=== PATIENT | male | born 1960 | race Caucasian/White ===

== ENCOUNTER 2018-01-14 15:53 | Inpatient (IN) | payer MEDICAID ==
--- NOTE | 2018-01-14 16:22 | ED PDOC ---
Arrival/HPI - General Chief Complaint: Shortness Of Breath Time Seen by Provider: 01/14/18 16:10 Historian: Patient - History of Present Illness Narrative History of Present Illness (Text): 01/14/18 16:17 57 year old male, with a past medical history that includes CAD, cardiomyopathy , hypertension, and MT, presents to the emergency department with chest pain and shortness of breath. Patient states he is coughing blood, and has pain in the "back" of his lungs. Patient is on Coumadin as per Dr. Rasmussen. Patient denies any fever, chills, headache, dizziness, nausea, vomiting, diarrhea, neck pain, urinary/bowel changes, or any other complaint. 01/14/18 19:29 Time/Duration: Prior to Arrival Symptom Onset: Gradual Symptom Course: Unchanged Quality: Pressure, Tightness Past Medical History - Provider Review Nursing Documentation Reviewed: Yes - Infectious Disease Hx of Infectious Diseases: None - Tetanus Immunization Tetanus Immunization: Unknown - Cardiac Hx Congestive Heart Failure: Yes Hx MT: Yes Hx Hypertension: Yes - Neurological Hx Neurological Disorder: Yes (MT) - Musculoskeletal/Rheumatological Hx Arthritis: Yes - Gastrointestinal Hx Gastroesophageal Reflux: Yes - Psychiatric Hx Depression: No Hx Emotional Abuse: No Hx Physical Abuse: No Hx Substance Use: No - Past Surgical History Past Surgical History: Unable to Obtain - Surgical History Hx Coronary Stent: Yes - Anesthesia Hx Anesthesia: Yes Hx Anesthesia Reactions: No - Suicidal Assessment Feels Threatened In Home Enviroment: No Family/Social History - Physician Review Nursing Documentation Reviewed: Yes Family/Social History: No Known Family HX Smoking Status: Heavy Smoker > 10 Cigarettes Daily Hx Alcohol Use: Yes Frequency of alcohol use: Socially Hx Substance Use: No Allergies/Home Meds Allergies/Adverse Reactions: Allergies No Known Allergies Allergy (Verified 01/14/18 16:09) Home Medications: Home Meds Medication Instructions Recorded Confirmed Aspirin [Aspir 81] 81 tab PO DAILY 04/04/13 06/19/15 Carvedilol [Coreg] 6.25 mg PO BID 04/04/13 06/19/15 Clopidogrel Hydrogen Sulfate 75 tab PO DAILY 04/04/13 06/19/15 [Plavix] Furosemide [Lasix] 40 tab PO DAILY 04/04/13 06/19/15 Omeprazole [Omeprazole] 40 tab PO DAILY 04/04/13 06/19/15 Pravastatin Sodium [Pravastatin] 80 mg PO DAILY 04/04/13 06/19/15 Cyclobenzaprine HCl [Flexeril] 10 mg PO Q4 06/01/13 06/19/15 Gabapentin [Neurontin] 300 mg PO DAILY 06/01/13 06/19/15 Warfarin Sodium [Warfarin Sodium] 5 mg PO DAILY 06/01/13 06/19/15 Allopurinol [Zyloprim] 300 mg PO DAILY 06/19/15 06/19/15 Colchicine 0.6 mg PO DAILY 06/19/15 06/19/15 Donepezil [Aricept] 10 mg PO DAILY 06/19/15 06/19/15 Escitalopram [Lexapro] 20 mg PO DAILY 06/19/15 06/19/15 Escitalopram [Lexapro] 20 mg PO DAILY 06/19/15 06/19/15 Fenofibrate,Micronized 134 mg PO DAILY 06/19/15 06/19/15 [Fenofibrate] Fluticasone Propionate [Flonase 0 ml NS 06/19/15 06/19/15 Allergy Relief] Losartan Potassium [Cozaar] 25 mg PO DAILY 06/19/15 06/19/15 Meclizine [Antivert] 12.5 mg PO DAILY 06/19/15 06/19/15 Niacin [Niaspan] 500 mg PO BID 06/19/15 06/19/15 Pravastatin Sodium [Pravachol] 80 mg PO DAILY 06/19/15 06/19/15 Tamsulosin [Flomax] 0.4 mg PO DAILY 06/19/15 06/19/15 Review of Systems - Physician Review All systems were reviewed & negative as marked: Yes - Review of Systems Constitutional: Normal. absent: Fevers, Night Sweats Eyes: Normal ENT: Normal Respiratory: SOB, Cough Cardiovascular: Chest Pain Gastrointestinal: Normal. absent: Diarrhea, Nausea, Vomiting Genitourinary Male: Normal. absent: Urinary Output Changes Musculoskeletal: Normal. absent: Neck Pain Skin: Normal Neurological: Normal. absent: Headache, Dizziness Endocrine: Normal Hemo/Lymphatic: Normal Psychiatric: Normal Physical Exam Vital Signs Reviewed: Yes Vital Signs Temp Pulse Resp BP Pulse Ox 01/14/18 21:59 103 H 20 112/91 H 100 01/14/18 20:51 20 01/14/18 20:47 107 H 18 111/76 99 01/14/18 19:57 98 H 18 119/75 97 01/14/18 19:44 138/84 01/14/18 15:54 98.5 F 107 H 20 138/84 99 Temperature: Afebrile Blood Pressure: Normal Pulse: Tachycardic Respiratory Rate: Normal Appearance: Positive for: Well-Appearing, Non-Toxic, Comfortable Pain Distress: None Mental Status: Positive for: Alert and Oriented X 3 - Systems Exam Head: Present: Atraumatic, Normocephalic Pupils: Present: PERRL Extroacular Muscles: Present: EOMI Conjunctiva: Present: Normal Mouth: Present: Moist Mucous Membranes Neck: Present: Normal Range of Motion Respiratory/Chest: Present: Rales (rales at base of lungs) Cardiovascular: Present: Normal S1, S2, Tachycardic. No: Murmurs Abdomen: No: Tenderness, Distention, Peritoneal Signs Back: Present: Normal Inspection Upper Extremity: Present: Normal Inspection. No: Cyanosis, Edema Lower Extremity: Present: Normal Inspection. No: Edema Neurological: Present: GCS=15, CN II-XII Intact, Speech Normal Skin: Present: Warm, Dry, Normal Color. No: Rashes Psychiatric: Present: Alert, Oriented x 3, Normal Insight, Normal Concentration Medical Decision Making ED Course and Treatment: 01/14/18 16:25 Impression: 57 year old male presents to the emergency department with chest pain and shortness of breath. Plan: -- EKG -- Labs -- Chest X-ray -- Urinalysis -- Reassess and disposition Prior Visits: Notes and results from previous visits were reviewed. Progress Notes: 01/14/18 16:31 EKG reviewed, shows: Sinus tach @ 108bpm Nonspecific ST and T wave changes LVH No interval change from previous, dated 201501/14/18 16:59 Chest X-ray reviewed by radiologist, shows: Right lower lobe airspace disease which may represent compressive atelectasis or pneumonia and moderate right pleural effusion.Follow-up after medical management is recommended to ensure complete resolution. Moderate cardiomegaly. 01/14/18 19:29 pt no recent travel since 2003, but [place] hemopytsis in [place]. ?tb, placed in iso. h/h stable cxr shows infiltrate. antibiotics given. lasix dosed. dr rasmussen requests hospitalist admission. accepted dr feng - Lab Interpretations Lab Results: 01/14/18 16:35 01/14/18 16:35 Lab Results 01/14/18 16:35: PT 18.2 H, INR 1.58, APTT 30.2 01/14/18 16:35: Sodium 142, Potassium 3.5 L, Chloride 104, Carbon Dioxide 25, Anion Gap 17, BUN 13, Creatinine 0.6 L, Est GFR ( Amer) > 60, Est GFR ( Non-Af Amer) > 60, Random Glucose 178 H, Calcium 8.8, Magnesium 1.7, Total Bilirubin 2.1 H, AST 17, ALT 13, Alkaline Phosphatase 88, Lactate Dehydrogenase 594, Total Creatine Kinase 24 L, Troponin I 0.02, NT-Pro-B Natriuret Pep 4070 H , Total Protein 7.2, Albumin 3.7, Globulin 3.6, Albumin/Globulin Ratio 1.0 L 01/14/18 16:35: WBC 12.4 H D, RBC 5.02, Hgb 12.2 L, Hct 38.9 L, MCV 77.5 L, MCH 24.3 L, MCHC 31.4, RDW 20.1 H, Plt Count 269, MPV 10.8, Gran % 83.2 H, Lymph % ( Auto) 6.0 L, [place] % (Auto) 10.5 H, Eos % (Auto) 0.2 L, Baso % (Auto) 0.1, Gran # 10.30 H, Lymph # (Auto) 0.7 L, [place] # (Auto) 1.3 H, Eos # (Auto) 0.0, Baso # ( Auto) 0.01 - RAD Interpretation Radiology Orders: 01/14/18 16:17 CHEST PORTABLE [RAD] Stat - Medication Orders Current Medication Orders: Acetaminophen (Tylenol 325mg Tab) 650 mg PO Q6 PRN PRN Reason: Pain, moderate (4-7) Last Admin: 01/14/18 23:34 Dose: 650 mg MAR Pain/Vitals Document 01/14/18 23:34 KOPPS (Rec: 01/14/18 23:35 KOPPS [id number]) Pain Reassessment Is This A Pain ReAssessment? No Sleep Is patient sleeping during reassessment? No Presence of Pain Presence of Pain Yes Pain Scale Used Pain Scale Used Numeric Location Left, Right or Bilateral Bilateral Pain Location Body Site Chest Description Constant Intensity 4 Scale Used Numeric Pain Behavior Moaning Aggravating Factors ADL's Changing Position Exercise/Activity Re-Assess: [facility] Pain/Vitals Document 01/15/18 00:34 KOPPS (Rec: 01/15/18 05:29 KOPPS [id number]) Pain Reassessment Is This A Pain ReAssessment? Yes Sleep Is patient sleeping during reassessment? No Presence of Pain Presence of Pain No Pain Scale Used Pain Scale Used Numeric Alprazolam (Xanax) 0.5 mg PO ONCE PRN; Protocol PRN Reason: Anxiety Atorvastatin Calcium (Lipitor) 20 mg PO DIN [facility] Carvedilol (Coreg) 6.25 mg PO BID [facility] Last Admin: 01/15/18 09:56 Dose: 6.25 mg [facility] Pulse and Blood Pressure Document 01/15/18 09:56 RDS (Rec: 01/15/18 09:56 [id number]) Pulse Pulse Rate (60-90) 118 Blood Pressure Blood Pressure (100/60-150/90) 152/94 Furosemide (Lasix) 40 mg IVP DAILY [facility] Last Admin: 01/15/18 09:56 Dose: 40 mg [facility] Blood Pressure Document 01/15/18 09:56 RDS (Rec: 01/15/18 09:56 [id number]) Blood Pressure Blood Pressure (100/60-150/90) 152/94 IVP Administration Document 01/15/18 09:56 RDS (Rec: 01/15/18 09:56 [id number]) Charges for Administration # of IVP Administrations 1 Ceftriaxone Sodium (Rocephin 1 Gram Ivpb) 1 gm in 100 mls @ 100 mls/hr IVPB DAILY [facility] PRN Reason: Protocol Last Admin: 01/15/18 09:55 Dose: 100 mls/hr eMAR Start Stop Document 01/15/18 09:55 RDS (Rec: 01/15/18 09:56 [id number]) Intravenous Solution Start Date 01/15/18 Start Time 09:55 End Date 01/15/18 End time 10:55 Total Infusion Time 60 Azithromycin (Zithromax 500mg In Ns) 500 mg in 250 mls @ 167 mls/hr IVPB DAILY [facility] PRN Reason: Protocol Last Admin: 01/15/18 11:18 Dose: 167 mls/hr eMAR Start Stop Document 01/15/18 11:18 RDS (Rec: 01/15/18 11:19 RDS [id number]) Intravenous Solution Start Date 01/15/18 Start Time 11:18 End Date 01/15/18 End time 12:48 Total Infusion Time 90 Levalbuterol HCl (Xopenex) 0.63 mg IH [id number] PRN PRN Reason: Shortness of Breath Levalbuterol HCl (Xopenex) 0.63 mg [facility] TIDRESP [facility] Last Admin: 01/15/18 13:35 Dose: 0.63 mg Losartan Potassium (Cozaar) 25 mg PO DAILY [facility] Last Admin: 01/15/18 09:56 Dose: 25 mg [facility] Pulse and Blood Pressure Document 01/15/18 09:56 RDS (Rec: 01/15/18 09:56 RDS [id number]) Pulse Pulse Rate (60-90) 118 Blood Pressure Blood Pressure (100/60-150/90) 152/94 Oxycodone HCl (Oxycodone Immediate Release Tab) 5 mg PO Q6H PRN PRN Reason: Pain, moderate (4-7) Last Admin: 01/15/18 09:57 Dose: 5 mg SAJI Pain Assessment Document 01/15/18 09:57 RDS (Rec: 01/15/18 09:57 RDS [id number]) Pain Reassessment Is this a pain reassessment? No Pain Scale Used Pain Scale Used Numeric Location Left, Right or Bilateral Right Upper or Lower Lower Pain Location Body Site Back Description Intensity of Pain at present 7 Re-Assess: SAJI Pain Assessment Document 01/15/18 10:57 RDS (Rec: 01/15/18 11:31 RDS [id number]) Pain Reassessment Is this a pain reassessment? Yes Sleep Is patient sleeping during reassessment? No Presence of Pain Presence of Pain No Pantoprazole Sodium (Protonix Ec Tab) 40 mg PO 0600 [facility] Last Admin: 01/15/18 06:20 Dose: 40 mg Tamsulosin HCl (Flomax) 0.4 mg PO DAILY [facility] Last Admin: 01/15/18 09:56 Dose: 0.4 mg Discontinued Medications Acetaminophen (Tylenol 325mg Tab) 975 mg PO STAT STA Stop: 01/14/18 17:05 Last Admin: 01/14/18 17:09 Dose: 975 mg MAR Pain/Vitals Document 01/14/18 17:09 SRE (Rec: 01/14/18 17:12 SRE [id number]) Pain Reassessment Is This A Pain ReAssessment? Yes Sleep Is patient sleeping during reassessment? No Presence of Pain Presence of Pain Yes Pain Scale Used Pain Scale Used Numeric Location Left, Right or Bilateral Right Pain Location Body Site Back Description Intermittent Furosemide (Lasix) 40 mg IVP STAT STA Stop: 01/14/18 17:16 Last Admin: 01/14/18 19:44 Dose: 40 mg MAR Blood Pressure Document 01/14/18 19:44 GMD (Rec: 01/14/18 19:45 GMD [id number]) Blood Pressure Blood Pressure (100/60-150/90) 138/84 IVP Administration Document 01/14/18 19:44 GMD (Rec: 01/14/18 19:45 GMD [id number]) Charges for Administration # of IVP Administrations 1 Ceftriaxone Sodium (Rocephin 1 Gram Ivpb) 1 gm in 100 mls @ 100 mls/hr IVPB STAT STA PRN Reason: Protocol Stop: 01/14/18 17:48 Last Admin: 01/14/18 17:07 Dose: 100 mls/hr eMAR Start Stop Document 01/14/18 17:07 SRE (Rec: 01/14/18 17:08 SRE [id number]) Intravenous Solution Start Date 01/14/18 Start Time 17:08 End Date 01/14/18 End time 18:00 Total Infusion Time 52 Azithromycin (Zithromax 500mg In Ns) 500 mg in 250 mls @ 167 mls/hr IVPB STAT STA PRN Reason: Protocol Stop: 01/14/18 18:18 Last Admin: 01/14/18 19:45 Dose: 167 mls/hr eMAR Start Stop Document 01/14/18 19:45 GMD (Rec: 01/14/18 19:45 GMD [id number]) Intravenous Solution Start Date 01/14/18 Start Time 19:45 End Date 01/14/18 End time 21:15 Total Infusion Time 90 Potassium Chloride (K-Dur 20 Meq Er Tab) 40 meq PO STAT STA Stop: 01/14/18 17:41 Last Admin: 01/14/18 19:44 Dose: 40 meq - Scribe Statement The provider has reviewed the documentation as recorded by the Wallyibe Vinnie Zazueta Provider Scribe Attestation: All medical record entries made by the Scribe were at my direction and personally dictated by me. I have reviewed the chart and agree that the record accurately reflects my personal performance of the history, physical exam, medical decision making, and the department course for this patient. I have also personally directed, reviewed, and agree with the discharge instructions and disposition. Disposition/Present on Arrival - Present on Arrival Any Indicators Present on Arrival: No History of DVT/PE: No History of Uncontrolled Diabetes: No Urinary Catheter: No History of Decub. Ulcer: No History Surgical Site Infection Following: None - Disposition Have Diagnosis and Disposition been Completed?: Yes Diagnosis: CHF (congestive heart failure), Pneumonia, Hemoptysis Disposition: HOSPITALIZED Disposition Time: 03:00 Patient Problems: Current Active Problems Problem Status Onset CHF (congestive heart failure) Acute Hemoptysis Acute Pneumonia Acute Condition: FAIR
[2018-01-14] MEDS ORDERED: Azithromycin 500MG/NS 250ml 500 MG/250 ML BAG IVPB STA (16:49)
[2018-01-14] MEDS ORDERED: cefTRIAXone 1 gm 1 GM/100 ML BAG IVPB STA (16:49)
--- NOTE | 2018-01-14 16:53 | RAD ---
Date of service: 01/14/2018 HISTORY: Shortness of breath COMPARISON: 06/19/2015. FINDINGS: LUNGS: The lungs are well inflated. There is airspace disease in the right lower lobe. PLEURA: Moderate right pleural effusion. No left pleural effusion, no pneumothorax apparent. CARDIOVASCULAR: Moderate cardiomegaly. OSSEOUS STRUCTURES: No significant abnormalities. VISUALIZED UPPER ABDOMEN: Normal. OTHER FINDINGS: None. IMPRESSION: Right lower lobe airspace disease which may represent compressive atelectasis or pneumonia and moderate right pleural effusion.Follow-up after medical management is recommended to ensure complete resolution. Moderate cardiomegaly.
[2018-01-14 16:55] LABS: BASO # 0.01 K/mm3 (0.0-2.0); BASO % 0.1 % (0.0-3.0); EOS % 0.2 % (1.5-5.0); GRAN # 10.3 (1.4-6.5); GRAN % 83.2 % (50.0-68.0); HEMOGLOBIN 12.2 g/dL (14.0-18.0); LYMPH # 0.7 (1.2-3.4); MEAN CELL VOLUME 77.5 fl (80.0-105.0); MEAN CORPUSCULAR HEMOGLOBIN 24.3 pg (25.0-35.0); MEAN CORPUSCULAR HGB CONC 31.4 g/dl (31.0-37.0); MEAN PLATELET VOLUME 10.8 fl (7.0-11.0); MONO # 1.3 (0.1-0.6); MONO % 10.5 % (1.0-6.0); RBC 5.02 10^6/uL (3.5-6.1); RED CELL DISTRIBUTION WIDTH 20.1 % (11.5-14.5); WHITE BLOOD COUNT 12.4 10^3/ul (4.5-11.0)
[2018-01-14 16:59] LABS: INR 1.58; PARTIAL THROMBOPLASTIN TIME 30.2 Seconds (25.1-36.5); PROTHROMBIN TIME 18.2 SECONDS (9.4-12.5)
[2018-01-14 17:03] LABS: ALBUMIN 3.7 g/dL (3.0-4.8); ALT/SGPT 13 U/L (7-56); AST/SGOT 17 U/L (17-59); BLOOD UREA NITROGEN 13 mg/dL (7-21); CALCIUM 8.8 mg/dL (8.4-10.5); GFR NON-AFRICAN AMERICAN > 60
[2018-01-14 17:13] LABS: B-TYPE NATRIURETIC PEPTIDE 4070 pg/mL (0-450); TROPONIN I 0.02 ng/mL
--- NOTE | 2018-01-14 17:31 | CARD ---
APPROVED REPORT Date of service: 01/14/2018 EKG Measurement Heart [id number] <Conclusion> Poor data quality, interpretation may be adversely affected Sinus tachycardia Possible Left atrial enlargement Left axis deviation Left ventricular hypertrophy with QRS widening T wave abnormality, consider lateral ischemia Abnormal ECG
[2018-01-14] MEDS ORDERED: Potassium Chloride 20 mEq ER Tab PO STA (17:40)
[2018-01-14] MEDS ORDERED: Levalbuterol 0.63 MG/3 ML Inhal Soln UD IH PRN (17:41)
--- NOTE | 2018-01-14 18:47 | CP.PCM.HP ---
<GeeVidal - Last Filed: 01/14/18 20:57> History of Present Illness - History of Present Illness History of Present Illness: Vidal Flynn, PGY1 Internal Medicine Resident. H&P for Dr Monique Carrillo: Progressive shortness of breath x3 days HPI: 57 y/o male with PMH of HTN, CHF, CAD with ID (s/p 2 stents in 2012), gout, HLD presents to ED c/o progressive shortness of breath for the past 3 days. It gets worse on exertion and on laying flat in bed. Exercise tolerance has been decreasing lately to one block. He sleeps on 3 pillows and wakes up gasping for air. He also c/o left chest pain, on the right and posterior aspect of his lower chest wall, prominent during inspiration with no radiation. Patient had similar symptms in the past related to his CHF and was hospitalized for CHF exacerbation. Patient reported coughing up blood 3 times since this morning which was pinkish in color with no clots. He also admits to unintentional weight loss, fatigue and night sweats lately but denied fever. Patient had no prior history of TB, no TB contacts, no recent travel. He is from [place] and has been in [place] for many years. Patient denied palpitation, dizziness, headache, leg swelling, urinary symptoms, N/V/D, abdominal pain, muscle pain or weakness. Nuclear stress test (2017) was equivocal. Echo (2017) showed EF 25-30%, LVH, PHTN, severly impaired LV function 12-point ROS reviewed with pertinent positives as stated above. PMH:HTN, CHF, CAD, ID, gout, HLD PSH: PCTA with 2 stents placed in 2012 FAMH: SOCH: drinks occasionally. current smoker, no illicit drug use. Lives with family MEDS: ASA, carvidolol, coumadin (stopped few days ago) (unable to recall all his meds) ALL: NKDA PMD: Dr Rosales CHECKER PRODUCT DESIGN: Dr Morales Present on Admission - Present on Admission Any Indicators Present on Admission: No Past Patient History - Infectious Disease Hx of Infectious Diseases: None - Tetanus Immunizations Tetanus Immunization: Unknown - Past Social History Smoking Status: Heavy Smoker > 10 Cigarettes Daily - CARDIAC Hx Congestive Heart Failure: Yes Hx Heart Attack: Yes Hx Hypertension: Yes - NEUROLOGICAL Hx Neurological Disorder: Yes (ID) - MUSCULOSKELETAL/RHEUMATOLOGICAL Hx Arthritis: Yes - GASTROINTESTINAL Hx Gastroesophageal Reflux: Yes - PSYCHIATRIC Hx Depression: No Hx Emotional Abuse: No Hx Physical Abuse: No Hx Substance Use: No - SURGICAL HISTORY Hx Coronary Stent: Yes - ANESTHESIA Hx Anesthesia: Yes Hx Anesthesia Reactions: No Meds Allergies/Adverse Reactions: Allergies Allergy/AdvReac Type Severity Reaction Status Date / Time No Known Allergies Allergy Verified 01/14/18 16:09 Physical Exam - Constitutional Appears: Well, In Acute Distress - Head Exam Head Exam: ATRAUMATIC, NORMAL INSPECTION, NORMOCEPHALIC - Eye Exam Eye Exam: EOMI, Normal appearance, PERRL Pupil Exam: NORMAL ACCOMODATION, PERRL - ENT Exam ENT Exam: Mucous Membranes Dry - Neck Exam Neck exam: Positive for: Normal Inspection - Respiratory Exam Respiratory Exam: Rhonchi Additional comments: RIGHT LOWER LUNG - Cardiovascular Exam Cardiovascular Exam: REGULAR RHYTHM, +S1, +S2 - GI/Abdominal Exam GI & Abdominal Exam: Normal Bowel Sounds, Soft. absent: Tenderness - Rectal Exam Rectal Exam: Deferred - Extremities Exam Extremities exam: Positive for: full ROM, normal inspection. Negative for: calf tenderness, pedal edema - Back Exam Back exam: NORMAL INSPECTION - Neurological Exam Neurological exam: Alert, CN II-XII Intact, Normal Gait, Oriented x3, Reflexes Normal - Psychiatric Exam Psychiatric exam: Anxious - Skin Skin Exam: Dry, Intact, Normal Color, Warm Results - Vital Signs Recent Vital Signs: Last Vital Signs Temp 98.5 F 01/14/18 15:54 Pulse 107 H 01/14/18 15:54 Resp 20 01/14/18 15:54 BP 138/84 01/14/18 15:54 Pulse Ox 99 01/14/18 15:54 - Labs Result Diagrams: 01/14/18 16:35 01/14/18 16:35 Assessment & Plan - Assessment and Plan (Free Text) Assessment: 57 y/o male with PMH of HTN, CHF, CAD with ID (s/p 2 stents in 2012), gout, HLD presents to ED c/o progressive shortness of breath for the past 3 days. CXR: showed right lower air space, atelectasis vs pneumonia, moderate right pleural effusion. moderate cardiomegaly Plan: Pneumonia CXR: showed right lower air space, atelectasis vs pneumonia, moderate right pleural effusion. moderate cardiomegaly WBC 12.4, patient afebrile Started Azithromax Started Rocephin 1 gm Xopenx TID and q6 prn Procal ordered Pulmonology consulted Blood culture CT angio chest R/O Tuberculosis Patient has night sweets, weight loss, fatigue, hemoptysis, from endemic [place] of TB AFB ordered Sputum culture Quantiferon ordered ID consulted Isolation CHF exacerbation Continue Carvidolol 6.25mg Continue Losartan 25mg daily BNP 4070 Lasix 40mg IVP daily Daily weight I/O daily Fluid restriction Cardiology consulted H/O CAD EKG: sinus tachy @108. LVH Trop - x1. will trend Patient was on coumadin, stopped few days ago PT/PTT/INR: 18.2/30.2/1.58 Hold coumadin Anemia H/H: 12.2/ 38.9 MCV: 77.5 Monitor closely HLD Continue Lipitor Lipid panel H/O BPH Continue home med Flomax 0.4 mg UA GI ppx Protonix Heart halthy diet DVT ppx SCD <Car Amaya A - Last Filed: 01/15/18 06:51> Results - Vital Signs Recent Vital Signs: Last Vital Signs Temp 97.7 F 01/15/18 06:00 Pulse 98 H 01/15/18 06:00 Resp 20 01/15/18 06:00 BP 111/71 01/15/18 06:00 Pulse Ox 99 01/15/18 06:00 - Labs Result Diagrams: 01/14/18 16:35 01/14/18 16:35 Labs: Laboratory Results - last 24 hr 01/14/18 01/14/18 22:00 23:33 Troponin I 0.03 D Urine Color andrés Urine Appearance Clear Urine pH 6.0 Ur Specific Mozier 1.020 Urine Protein 100 H Urine Glucose (UA) Negative Urine Ketones Trace H Urine Blood Trace-intact H Urine Nitrate Negative Urine Bilirubin Small H Urine Urobilinogen 4.0 H Ur Leukocyte Esterase Negative Urine RBC 5 - 10 Urine WBC 5 - 10 Ur Epithelial Cells 6 - 8 Attending/Attestation - Attestation I have personally seen and examined this patient.: Yes I have fully participated in the care of the patient.: Yes I have reviewed all pertinent clinical information: Yes Notes (Text): 08/24/18 57 year old male with past medical history of CHF, CAD s/p stents, ?history of cardiac thrombus and dyslipidemia who presents with complaint of progressive dyspnea and hemoptysis. CXR shows right lower air space disease, possible pneumonia. Probnp was also elevated at 4070. Will start on iv antibiotics for pneumonia and iv lasix for CHF exacerbation. CT angio is ordered to rule out PE. Serial cardiac enzymes also ordered. Will request for pulmonary and cardiology evaluation. Echocardiogram is ordered. Hold coumadin for now due to hemoptysis. AFBs ordered to rule out TB. Car Amaya MD Hospitalist.
[2018-01-14] MEDS ORDERED: Iohexol 350 MG/100 ML VIAL ONE (18:48)
[2018-01-14 22:19] LABS: URINE BILIRUBIN SMALL (NEGATIVE); URINE BLOOD TRACE-INTACT (NEGATIVE); URINE GLUCOSE (UA) NEGATIVE (NEGATIVE); URINE LEUKOCYTE ESTERASE NEGATIVE Leu/uL (NEGATIVE); URINE PROTEIN 100 mg/dL (<30 mg/dL)
[2018-01-14 22:20] LABS: URINE APPEARANCE CLEAR (CLEAR)
[2018-01-15 05:04] VITALS: BMI 25.4
[2018-01-15] MEDS: Pantoprazole 40 mg EC Tab PO SCH (06:20)
[2018-01-15 08:06] LABS: BASO # 0.01 K/mm3 (0.0-2.0); BASO % 0.1 % (0.0-3.0); EOS % 0.3 % (1.5-5.0); GRAN # 9.29 (1.4-6.5); GRAN % 81.2 % (50.0-68.0); HEMOGLOBIN 12.4 g/dL (14.0-18.0); MEAN CELL VOLUME 76.8 fl (80.0-105.0); MEAN CORPUSCULAR HEMOGLOBIN 24.4 pg (25.0-35.0); MEAN CORPUSCULAR HGB CONC 31.7 g/dl (31.0-37.0); MEAN PLATELET VOLUME 10.9 fl (7.0-11.0); MONO # 1.1 (0.1-0.6); MONO % 9.4 % (1.0-6.0); RBC 5.09 10^6/uL (3.5-6.1); WHITE BLOOD COUNT 11.4 10^3/ul (4.5-11.0)
[2018-01-15 08:16] LABS: ALT/SGPT 12 U/L (7-56); AST/SGOT 21 U/L (17-59); BLOOD UREA NITROGEN 17 mg/dL (7-21); CALCIUM 9.3 mg/dL (8.4-10.5); GFR NON-AFRICAN AMERICAN > 60; HDL CHOLESTEROL 15 mg/dL (29-60)
[2018-01-15 08:21] LABS: LDL CHOLESTEROL 61 mg/dL (0-129); TROPONIN I 0.03 ng/mL
[2018-01-15] MEDS: Levalbuterol 0.63 MG/3 ML Inhal Soln UD IH SCH ×3 (08:33→19:32)
[2018-01-15 09:17] LABS: INR 1.53; PARTIAL THROMBOPLASTIN TIME 31.5 Seconds (25.1-36.5); PROTHROMBIN TIME 17.7 SECONDS (9.4-12.5)
--- NOTE | 2018-01-15 09:51 | CP.PCM.CON ---
History of Present Illness - History of Present Illness History of Present Illness: CONSULT FOR DR. LLAMAS Awake, alert, no distress,anxious Reason for consultation: Cardiac evaluation of progressive shortness of breath and chest pain. History of congestive heart failure,coronary artery disease with myocardial infarction with stents 2012. Brief history of present illness: A 57 year old male who came in to the ER due to progressive shortness of breath for the past 3 days ,worsening on exertion. Also complaints of left chest pain and right posterior lower chest aggravated during inspiration. non radiating. Decreased exercise tolerance . History of hypertension, congestive heart failure,coronary artery disease with myocardial infarction with stents 2012, gout, hyperlipidemia, current smoker.current alcohol abuse, Admits to unintentional weight loss, fatigue, night sweats, coughing up blood/pinkish 3 times prior to admission, taking coumadin for questionable LV thrombus. Airborne precaution initiated. Seen and examined by me and Dr. Myers Covering Dr. Llamas Review of Systems - Review of Systems All systems: reviewed and no additional remarkable complaints except Review of Systems: from HPI Past Patient History - Infectious Disease Hx of Infectious Diseases: None - Tetanus Immunizations Tetanus Immunization: Unknown - Past Social History Smoking Status: Light Smoker < 10 Cigarettes Daily - CARDIAC Hx Congestive Heart Failure: Yes Hx Hypertension: Yes - NEUROLOGICAL Hx Neurological Disorder: Yes ([place]) - MUSCULOSKELETAL/RHEUMATOLOGICAL Hx Arthritis: Yes - GASTROINTESTINAL Hx Gastroesophageal Reflux: Yes - PSYCHIATRIC Hx Depression: No Hx Emotional Abuse: No Hx Physical Abuse: No - SURGICAL HISTORY Hx Surgeries: Yes (CARDIAC STENTS X 2) Hx Coronary Stent: Yes - ANESTHESIA Hx Anesthesia: Yes Hx Anesthesia Reactions: No Meds Allergies/Adverse Reactions: Allergies Allergy/AdvReac Type Severity Reaction Status Date / Time No Known Allergies Allergy Verified 01/14/18 16:09 - Medications Medications: Current Medications Acetaminophen (Tylenol 325mg Tab) 650 mg PO Q6 PRN PRN Reason: Pain, moderate (4-7) Last Admin: 01/14/18 23:34 Dose: 650 mg Alprazolam (Xanax) 0.5 mg PO ONCE PRN; Protocol PRN Reason: Anxiety Atorvastatin Calcium (Lipitor) 20 mg PO DIN YOVANI Carvedilol (Coreg) 6.25 mg PO BID [facility] Furosemide (Lasix) 40 mg IVP DAILY [facility] Ceftriaxone Sodium (Rocephin 1 Gram Ivpb) 1 gm in 100 mls @ 100 mls/hr IVPB DAILY YVOANI PRN Reason: Protocol Azithromycin (Zithromax 500mg In Ns) 500 mg in 250 mls @ 167 mls/hr IVPB DAILY YOVANI PRN Reason: Protocol Levalbuterol HCl (Xopenex) 0.63 mg IH [id number] PRN PRN Reason: Shortness of Breath Levalbuterol HCl (Xopenex) 0.63 mg IH TIDRESP [facility] Last Admin: 01/15/18 08:33 Dose: 0.63 mg Losartan Potassium (Cozaar) 25 mg PO DAILY [facility] Oxycodone HCl (Oxycodone Immediate Release Tab) 5 mg PO Q6H PRN PRN Reason: Pain, moderate (4-7) Pantoprazole Sodium (Protonix Ec Tab) 40 mg PO 0600 [facility] Last Admin: 01/15/18 06:20 Dose: 40 mg Tamsulosin HCl (Flomax) 0.4 mg PO DAILY [facility] Physical Exam - Constitutional Appears: No Acute Distress - Eye Exam Eye Exam: Normal appearance - ENT Exam ENT Exam: Mucous Membranes Moist - Respiratory Exam Respiratory Exam: Decreased Breath Sounds, NORMAL BREATHING PATTERN Additional comments: right posterior lower lateral back pain, - Cardiovascular Exam Cardiovascular Exam: REGULAR RHYTHM, +S1, +S2 - GI/Abdominal Exam GI & Abdominal Exam: Normal Bowel Sounds, Soft - Neurological Exam Neurological exam: Alert, Oriented x3 - Psychiatric Exam Psychiatric exam: Anxious - Skin Skin Exam: Dry, Warm Results - Vital Signs Recent Vital Signs: Last Vital Signs Temp 97.7 F 01/15/18 06:00 Pulse 98 H 01/15/18 06:00 Resp 20 01/15/18 06:00 BP 111/71 01/15/18 06:00 Pulse Ox 99 01/15/18 06:00 - Labs Result Diagrams: 01/15/18 07:50 01/15/18 07:50 Labs: Laboratory Results - last 24 hr 01/14/18 01/14/18 01/15/18 22:00 23:33 07:50 WBC RBC Hgb Hct MCV MCH MCHC RDW Plt Count MPV Gran % Lymph % (Auto) [place] % (Auto) Eos % (Auto) Baso % (Auto) Gran # Lymph # (Auto) [place] # (Auto) Eos # (Auto) Baso # (Auto) PT INR APTT Sodium 143 Potassium 4.2 Chloride 104 Carbon Dioxide 25 Anion Gap 18 BUN 17 Creatinine 0.7 L Est GFR ( Amer) > 60 Est GFR (Non-Af Amer) > 60 Random Glucose 128 H Calcium 9.3 Total Bilirubin 2.5 H AST 21 ALT 12 Alkaline Phosphatase 138 H D Troponin I 0.03 D 0.03 Total Protein 7.7 Albumin 4.0 Globulin 3.8 Albumin/Globulin Ratio 1.0 L Triglycerides 145 Cholesterol 122 L LDL Cholesterol Direct 61 HDL Cholesterol 15 L TSH 3rd Generation Urine Color andrés Urine Appearance Clear Urine pH 6.0 Ur Specific [place] 1.020 Urine Protein 100 H Urine Glucose (UA) Negative Urine Ketones Trace H Urine Blood Trace-intact H Urine Nitrate Negative Urine Bilirubin Small H Urine Urobilinogen 4.0 H Ur Leukocyte Esterase Negative Urine RBC 5 - 10 Urine WBC 5 - 10 Ur Epithelial Cells 6 - 8 01/15/18 01/15/18 01/15/18 07:50 07:50 08:30 WBC 11.4 H RBC 5.09 Hgb 12.4 L Hct 39.1 L MCV 76.8 L MCH 24.4 L MCHC 31.7 RDW 20.0 H Plt Count 315 MPV 10.9 Gran % 81.2 H Lymph % (Auto) 9.0 L [place] % (Auto) 9.4 H Eos % (Auto) 0.3 L Baso % (Auto) 0.1 Gran # 9.29 H Lymph # (Auto) 1.0 L [place] # (Auto) 1.1 H Eos # (Auto) 0.0 Baso # (Auto) 0.01 PT 17.7 H INR 1.53 APTT 31.5 Sodium Potassium Chloride Carbon Dioxide Anion Gap BUN Creatinine Est GFR ( Amer) Est GFR (Non-Af Amer) Random Glucose Calcium Total Bilirubin AST ALT Alkaline Phosphatase Troponin I Total Protein Albumin Globulin Albumin/Globulin Ratio Triglycerides Cholesterol LDL Cholesterol Direct HDL Cholesterol TSH 3rd Generation 0.93 Urine Color Urine Appearance Urine pH Ur Specific [place] Urine Protein Urine Glucose (UA) Urine Ketones Urine Blood Urine Nitrate Urine Bilirubin Urine Urobilinogen Ur Leukocyte Esterase Urine RBC Urine WBC Ur Epithelial Cells Assessment & Plan - Assessment and Plan (Free Text) Assessment: A 57 year old male who came in to the ER due to progressive shortness of breath for the past 3 days ,worsening on exertion. Also complaints of left chest pain and right posterior lower chest aggravated during inspiration. non radiating. Decreased exercise tolerance .History of hypertension, congestive heart failure,coronary artery disease with myocardial infarction with stents 2012, gout, hyperlipidemia, current smoker.current alcohol abuse, Admits to unintentional weight loss, fatigue, night sweats,coughing up blood/pinkish 3 times prior to admission, taking coumadin for questionable LV thrombus. Airborne precaution initiated. Chest X ray showed right moderate pleural effusion, pneumonia. Shortness of breath attributed to moderate right pleural effusion/pneumonia. Follows up with Dr. Hurst- Gym Manager [place] [place] Review of previous cardiac work up: 09/23/16 Stress test-LVEF 25% LV moderatley dilated, severely depressed left ventricular systolic function Old anterolateral [place] with ischemia 09/23/16ECHO-Severely impaired LV systolic function LVEF 25% Apical hypokinesis anterior wall Cannot rule out thrombus on the left ventricle, ventricular aspect of the posterior leaflet of the mitral valve Trace MR moderate to severe pulmonary hypertension Plan: For ECHO to evaluate LV function and questionable LV thrombus Hold Coumadin, ( on coumadin due to the ? thrombus) causing hemoptysis ID on consult work up for TB in progress Continue IV Lasix to diurese Pulmonary on consult Continue current treatment Continue current medications Further recommendations during hospital course. Will follow up Plan and treatment discussed with Dr. myers Thank you for the opportunity in taking care of Mr. Wilfredo Farias - Date & Time Date: 01/15/18 Time: 09:35
[2018-01-15] MEDS: cefTRIAXone 1 gm 1 GM/100 ML BAG IVPB SCH (09:55)
[2018-01-15] MEDS: oxyCODONE 5 mg Immediate Release Tab PO PRN (09:57)
[2018-01-15] MEDS: Azithromycin 500MG/NS 250ml 500 MG/250 ML BAG IVPB SCH (11:18)
[2018-01-15] MEDS ORDERED: Iohexol 240 (50 ml) ONE (11:49)
--- NOTE | 2018-01-15 13:33 | CARD ---
APPROVED REPORT Date of service: 01/15/2018 EXAM: Two-dimensional and M-mode echocardiogram with Doppler and color Doppler. INDICATION LV Function: 2D DIMENSIONS Left Atrium (2D)5.1 (1.6-4.0cm)IVSd1.1 (0.7-1.1cm) Aortic Root (2D)3.8 (2.0-3.7cm)LVDd6.5 (3.9-5.9cm) PWd1.2 (0.7-1.1cm)LVDs5.3 (2.5-4.0cm) FS (%) 18.2 %LVEF (%)36.9 (>50%) M-Mode DIMENSIONS Aortic Cusp Exc.2.00 (1.5-2.0cm) Mitral Valve MV E Vqfwxfto62.3cm/s Pulmonary Valve PV Peak Mzbxgbdx25.0cm/sPV Peak Grad.4mmHg Tricuspid Valve TR Peak [id number] [id number] Peak Gr.48mmHg [id number] LEFT VENTRICLE The Left Ventricle is moderately dilated. There is normal left ventricular wall thickness. The systolic function is severely impaired. Regional wall motion abnormalities noted. No left ventricle thrombus noted on this study. RIGHT VENTRICLE The right ventricle is normal size. There is normal right ventricular wall thickness. The right ventricular systolic function is normal. ATRIA The left atrium is moderately dilated. The right atrium is moderately dilated. AORTIC VALVE The aortic valve is mildly thickened. No aortic regurgitation is present. There is no aortic valvular stenosis. MITRAL VALVE The mitral valve is mildly thickened. Mitral regurgitation is moderate. There is no mitral valve stenosis. TRICUSPID VALVE The tricuspid valve is normal in structure. There is moderate tricuspid regurgitation. There is moderate pulmonary hypertension. PULMONIC VALVE The pulmonary valve is normal in structure. There is no pulmonic valvular regurgitation. GREAT VESSELS The aortic root is normal in size. The IVC collapses <50% with inspiration. PERICARDIAL EFFUSION There is a small loculated posterior pericardial effusion. <Conclusion> The Left Ventricle is moderately dilated. There is normal left ventricular wall thickness. The systolic function is severely impaired. Regional wall motion abnormalities noted. No left ventricle thrombus noted on this study. Mitral regurgitation is moderate. There is moderate tricuspid regurgitation. There is moderate pulmonary hypertension.
--- NOTE | 2018-01-15 14:28 | CARD ---
APPROVED REPORT Date of service: 01/15/2018 EKG Measurement Heart [id number] <Conclusion> Sinus tachycardia with PVCs Possible Left atrial enlargement Left axis deviation Abnormal QRS-T angle, consider primary T wave abnormality Abnormal ECG
--- NOTE | 2018-01-15 14:41 | CP.PCM.PN ---
<Grant Perkins - Last Filed: 01/15/18 14:37> Subjective - Date & Time of Evaluation Date of Evaluation: 01/15/18 Time of Evaluation: 14:38 - Subjective Subjective: Grant Perkins DO PGY1 - Internal Medicine Computer Engineering Professor -Hospital Progress Note Patient was seen and examined at bedside this AM. Patient reported complaints of R sided lower back pain. Reported he did not go to his CTA of Chest 2/2 c/o back pain. Still complaining of hemoptysis, and some SOB. Voices no other complaints at this time. Objective - Vital Signs/Intake and Output Vital Signs (last 24 hours): Temp Pulse Resp BP Pulse Ox 97.1 F L 107 H 19 120/80 99 01/15/18 12:00 01/15/18 12:00 01/15/18 12:00 01/15/18 12:00 01/15/18 06:00 Intake and Output: 01/15/18 01/15/18 06:59 18:59 Intake Total 240 Balance 240 - Medications Medications: Current Medications Acetaminophen (Tylenol 325mg Tab) 650 mg PO Q6 PRN PRN Reason: Pain, moderate (4-7) Last Admin: 01/14/18 23:34 Dose: 650 mg Alprazolam (Xanax) 0.5 mg PO ONCE PRN; Protocol PRN Reason: Anxiety Atorvastatin Calcium (Lipitor) 20 mg PO DIN [facility]OV[facility] Carvedilol (Coreg) 6.25 mg PO BID [facility] Last Admin: 01/15/18 09:56 Dose: 6.25 mg Furosemide (Lasix) 40 mg IVP DAILY [facility] Last Admin: 01/15/18 09:56 Dose: 40 mg Ceftriaxone Sodium (Rocephin 1 Gram Ivpb) 1 gm in 100 mls @ 100 mls/hr IVPB DAILY YOV[facility] PRN Reason: Protocol Last Admin: 01/15/18 09:55 Dose: 100 mls/hr Azithromycin (Zithromax 500mg In Ns) 500 mg in 250 mls @ 167 mls/hr IVPB DAILY [facility] PRN Reason: Protocol Last Admin: 01/15/18 11:18 Dose: 167 mls/hr Levalbuterol HCl (Xopenex) 0.63 mg IH [id number] PRN PRN Reason: Shortness of Breath Levalbuterol HCl (Xopenex) 0.63 mg IH TIDRESP [facility] Last Admin: 01/15/18 13:35 Dose: 0.63 mg Losartan Potassium (Cozaar) 25 mg PO DAILY [facility] Last Admin: 01/15/18 09:56 Dose: 25 mg Oxycodone HCl (Oxycodone Immediate Release Tab) 5 mg PO Q6H PRN PRN Reason: Pain, moderate (4-7) Last Admin: 01/15/18 09:57 Dose: 5 mg Pantoprazole Sodium (Protonix Ec Tab) 40 mg PO 0600 [facility] Last Admin: 01/15/18 06:20 Dose: 40 mg Tamsulosin HCl (Flomax) 0.4 mg PO DAILY [facility] Last Admin: 01/15/18 09:56 Dose: 0.4 mg - Labs Labs: 01/15/18 07:50 01/15/18 07:50 PT 17.7 SECONDS (9.4-12.5) H 01/15/18 08:30 INR 1.53 01/15/18 08:30 APTT 31.5 Seconds (25.1-36.5) 01/15/18 08:30 Assessment and Plan - Assessment and Plan (Free Text) Assessment: 57 y/o male with PMH of HTN, CHF, CAD with MO (s/p 2 stents in 2012), gout, HLD presents to ED c/o progressive shortness of breath for the past 3 days. CXR: showed right lower air space, atelectasis vs pneumonia, moderate right pleural effusion. moderate cardiomegaly Plan: Pneumonia CXR: showed right lower air space, atelectasis vs pneumonia, moderate right pleural effusion. moderate cardiomegaly WBC improving C/w Azithromax C/w Rocephin 1 gm Xopenx TID and q6 prn Procal pending Blood culture CT angio chest pending Pulmonology consulted ID Following Back Pain: Oxycodone 5 Q6H PRN - Moderate pain Tylenol 650 Q6H PRN - Mild pain R/O Tuberculosis Patient has night sweets, weight loss, fatigue, hemoptysis, from endemic [place] of [place] samples pending Sputum culture Quantiferon ordered ID Following Isolation HFrEF exacerbation EF 36.9% Continue Carvidolol 6.25mg Continue Losartan 25mg daily BNP 4070 Lasix 40mg IVP daily Daily weight I/O daily Fluid restriction Cardiology consulted H/O CAD EKG: sinus tachy @108. LVH Trop - x1. will trend Patient was on coumadin, stopped few days ago PT/PTT/INR: 18.2/30.2/1.58 Hold coumadin Lipitor 20 QD Anemia H/H: 12.2/ 38.9 MCV: 77.5 Monitor closely HLD Continue Lipitor Lipid panel H/O BPH Continue home med Flomax 0.4 mg UA GI ppx Protonix Heart halthy diet DVT ppx SCD DISPO: Patient will require inpatient admission under isolation precaution for rule out of TB, and workup of SOB/Dyspnea. Patient was seen, examined, and discussed w/ attending physician Dr. oMnique Perkins DO - PGY1 Internal Medicine Computer Engineering Professor <Car Amaya - Last Filed: 01/15/18 16:08> Objective - Vital Signs/Intake and Output Vital Signs (last 24 hours): Temp Pulse Resp BP Pulse Ox 97.1 F L 107 H 19 120/80 99 01/15/18 12:00 01/15/18 12:00 01/15/18 12:00 01/15/18 12:00 01/15/18 06:00 Intake and Output: 01/15/18 01/15/18 06:59 18:59 Intake Total 240 Balance 240 - Medications Medications: Current Medications Acetaminophen (Tylenol 325mg Tab) 650 mg PO Q6 PRN PRN Reason: Pain, moderate (4-7) Last Admin: 01/14/18 23:34 Dose: 650 mg Alprazolam (Xanax) 0.5 mg PO ONCE PRN; Protocol PRN Reason: Anxiety Atorvastatin Calcium (Lipitor) 20 mg PO DIN [facility] Carvedilol (Coreg) 6.25 mg PO BID [facility] Last Admin: 01/15/18 09:56 Dose: 6.25 mg Furosemide (Lasix) 40 mg IVP DAILY [facility] Last Admin: 01/15/18 09:56 Dose: 40 mg Ceftriaxone Sodium (Rocephin 1 Gram Ivpb) 1 gm in 100 mls @ 100 mls/hr IVPB DAILY Y[facility] PRN Reason: Protocol Last Admin: 01/15/18 09:55 Dose: 100 mls/hr Azithromycin (Zithromax 500mg In Ns) 500 mg in 250 mls @ 167 mls/hr IVPB DAILY [facility] PRN Reason: Protocol Last Admin: 01/15/18 11:18 Dose: 167 mls/hr Levalbuterol HCl (Xopenex) 0.63 mg IH [id number] PRN PRN Reason: Shortness of Breath Levalbuterol HCl (Xopenex) 0.63 mg IH TIDRESP [facility] Last Admin: 01/15/18 13:35 Dose: 0.63 mg Losartan Potassium (Cozaar) 25 mg PO DAILY [facility] Last Admin: 01/15/18 09:56 Dose: 25 mg Oxycodone HCl (Oxycodone Immediate Release Tab) 5 mg PO Q6H PRN PRN Reason: Pain, moderate (4-7) Last Admin: 01/15/18 09:57 Dose: 5 mg Pantoprazole Sodium (Protonix Ec Tab) 40 mg PO 0600 [facility] Last Admin: 01/15/18 06:20 Dose: 40 mg Tamsulosin HCl (Flomax) 0.4 mg PO DAILY [facility] Last Admin: 01/15/18 09:56 Dose: 0.4 mg - Labs Labs: 01/15/18 07:50 01/15/18 07:50 PT 17.7 SECONDS (9.4-12.5) H 01/15/18 08:30 INR 1.53 01/15/18 08:30 APTT 31.5 Seconds (25.1-36.5) 01/15/18 08:30 Attending/Attestation - Attestation I have personally seen and examined this patient.: Yes I have fully participated in the care of the patient.: Yes I have reviewed all pertinent clinical information, including history, physical exam and plan: Yes Notes (Text): 01/15/18 16:06 57 year old male with past medical history of CHF, CAD s/p stents, ?history of cardiac thrombus on coumadin and dyslipidemia who presented with complaint of progressive dyspnea and hemoptysis. CXR showed right lower air space disease, possible pneumonia for which patient is on iv antibiotics. Procalcitonin 0.44. Probnp was also elevated at 4070. Echocardiogram is pending. Patient is on iv lasix. CT angio was ordered to rule out PE which patient refused yesterday due to back pain. Will try again today. Coumadin is on hold for now due to hemoptysis. AFBs ordered to rule out TB. ID, pulmonary and cardiology evaluations were requested. Will follow up with recommendations. Car Amaya MD Hospitalist.
--- NOTE | 2018-01-15 16:00 | CON ---
Copied To: Jignesh Jacob MD Attending MD: Jignesh Jacob MD DATE: 01/15/2018 PULMONARY CONSULT REFERRING PHYSICIAN: Dr. Amaya. REASON FOR CONSULT: Cough, shortness of breath. HISTORY OF PRESENT ILLNESS: This is a 57-year-old gentleman with past medical history significant for cardiomyopathy, coronary artery disease, history of gout, hyperlipidemia, history of coronary stent, comes into ER with cough, shortness of breath, has some blood-tinged sputum. No nausea, no vomiting, no diarrhea. No leg pain or leg swelling. PAST MEDICAL HISTORY: Cardiomyopathy with LV ejection fraction of 20-25%, coronary artery disease, history of coronary stent, gout, hyperlipidemia. SOCIAL HISTORY: Positive history of smoking. Drinks alcohol occasionally. ALLERGIES: NONE KNOWN. FAMILY HISTORY: No significant cardiopulmonary disease reported. MEDICATIONS: He is on Coreg 6.25 mg twice a day, Cozaar 25 mg daily, Flomax 0.4 mg daily, Lasix 40 mg daily, Lipitor 20 mg daily, he is on oxycodone immediate release 5 mg every 6 hours p.r.n., Protonix 4 mg daily, Rocephin 1 g daily, Tylenol p.r.n., Xanax 0.5 mg was given for anxiety p.r.n., Xopenex inhaled every 6 hours, Zithromax 500 mg daily. REVIEW OF SYSTEMS: No headache. No rhinitis. Has cough, shortness of breath. Has occasional blood-tinged sputum. No chest pain at present. No nausea. No vomiting, diarrhea, leg pain, leg swelling. PHYSICAL EXAMINATION: GENERAL: In no acute distress. VITAL SIGNS: Temp is 98, heart rate is 107, respiratory rate is 20, blood pressure 120/80, pulse ox 99% on nasal cannula. HEENT: Moist mucous membrane. Crowded airway. NECK: Supple. No JVD. LUNGS: Have a few crackles at bases. HEART: S1 and S2. ABDOMEN: Soft, nontender. No organomegaly. EXTREMITIES: No edema. NEUROLOGICAL: Awake and alert. Follows simple commands. LABORATORY DATA: Shows hemoglobin 12.4, hematocrit 39.1, WBC 11.4, platelet is 315. INR 1.53, PTT 32. Sodium 143, potassium 4.2, chloride 104, bicarbonate 25, BUN 17, creatinine 0.7, glucose 128, calcium 9.3, AST 21, ALT 12, alk phos is 138, albumin is 4, triglyceride is 145, cholesterol is 122, TSH 0.93. Had echocardiogram done today, which shows right ventricular systolic pressure is 53. Left ventricle moderately dilated. There is systolic function is severely impaired. Had a chest x-ray done, which shows right lower lobe airspace disease, which may represent compressive atelectasis or pneumonia. IMPRESSION AND PLAN: Severe cardiomyopathy, pulmonary hypertension, history of coronary artery disease, right lower lobe atelectasis versus infiltrate with effusion. We will get CT of the chest to assure there is no pneumonia. Get procalcitonin in the morning. I doubt it is a tuberculosis. Cardiac workup as per Cardiology. Thank you and we will follow with you. Jignesh Jacob MD
[2018-01-15] MEDS ORDERED: Iodixanol 320 MG/ML 100 ML BOTTLE IV ONE (17:15)
--- NOTE | 2018-01-15 22:39 | CON ---
Copied To: Andreas Shields MD Attending MD: Andreas Shields MD DATE: 01/15/2018 LOCATION: The patient is seen earlier today in room 267, bed 1. CHIEF COMPLAINT: Right-sided chest pain. HISTORY OF PRESENT ILLNESS: This is a 57-year-old male who was seen yesterday in the emergency room by Dr. Bro Salazar. The patient's chief complaint is right-sided pain times several days. He is originally from [place]. The patient has a history of coronary artery disease, cardiomyopathy, hypertension, myocardial infarction, admitted with chest pain and shortness of breath and hemoptysis and he denies any fevers, any chills, any headaches. No nausea. No back pain. No neck pain. The right-sided chest pain is pleuritic in nature. It radiates to the back. He denies any dysuria or frequency. PAST MEDICAL HISTORY: Significant for hypertension, coronary artery disease, myocardial infarction, cardiomyopathy, high cholesterol, congestive heart failure and arthritis. PAST SURGICAL HISTORY: Significant for cardiac cath with stent placement. SOCIAL HISTORY: The patient is long time smoker. He quit smoking years ago and alcohol user. ALLERGIES: THE PATIENT HAS NO KNOWN ALLERGIES. MEDICATIONS AT HOME: Include Flomax, Coumadin, Lasix, Coreg, aspirin, Pravachol, omeprazole, Neurontin, Lexapro. PHYSICAL EXAMINATION: GENERAL: He is in bed. VITAL SIGNS: Temperature of 98, heart rate of 118, respiratory rate of 20, it was up to 22, blood pressure is 111/70. HEENT: Unremarkable. NECK: Supple. LUNGS: Have decreased breath sounds. HEART: Normal S1, S2. ABDOMINAL: Soft, nontender. No organomegaly. No rebound. No guarding. No masses. LABORATORY EXAMINATION: Reveals a white count of 12,400, hemoglobin of 12, platelets of 269. Coagulation is noted. Chemistries reveals a BUN of 17, creatinine of 0.7. Urinalysis is noted. Troponin is negative x3. The BNP is 08/3999, glucose is elevated at 178. BUN and creatinine is noted. Alkaline phosphatase is elevated at 138. Urinalysis noted. The patient had a chest x-ray, which revealed moderate right effusion. There is no left pleural effusion. No pneumothorax. Right lower lobe airspace disease. Compressive atelectasis or pneumonia. ASSESSMENT AND PLAN: A 57-year-old Bangladeshi male with coronary artery disease, cardiomyopathy, myocardial infarction, high cholesterol, congestive heart failure, arthritis, depression, admitted with hemoptysis, tachycardia, dyspnea, right-sided pleuritic pain with #1 is sepsis with right-sided community-acquired pneumonia in a male from [place]. I doubt tuberculosis. This is most likely community-acquired pneumonia with parapneumonic effusion. Currently, we will treat the patient on ceftriaxone and azithromycin. Acid-fast bacillus workup has been ordered. has been ordered by . We will also order an human immunodeficiency virus test. Echocardiogram has been ordered in a patient with probable underlying congestive heart failure and we will order a CAT scan of the chest and abdomen. Concerned about the alkaline phosphatase elevation. We will order a CAT scan of the chest to evaluate the pleural effusion. We will make further recommendations upon the availability of initial results and we will check on the procalcitonin and continue with the Zithromax and also order a urine Legionella antigen. We will make further recommendations and the degree of pleural involvement and significant pain unlikely to be tuberculosis unless the patient is immunocompromised. We will follow with you. We will check on the echocardiogram result to evaluate the patient's ejection fraction. The patient does have hemoglobin of 12 with MCV of 77. The patient's EKG reveals a QTc of 477. We will follow with you. Andreas Shields MD
[2018-01-16] MEDS: Pantoprazole 40 mg EC Tab PO SCH (05:59)
[2018-01-16] MEDS: oxyCODONE 5 mg Immediate Release Tab PO PRN ×2 (06:03→15:05)
[2018-01-16] MEDS: Levalbuterol 0.63 MG/3 ML Inhal Soln UD IH SCH ×3 (07:38→19:49)
--- NOTE | 2018-01-16 08:09 | CP.PCM.PN ---
Subjective - Date & Time of Evaluation Date of Evaluation: 01/16/18 Time of Evaluation: 06:40 - Subjective Subjective: COVERING FOR DR. LLAMAS Awake, alert, no distress,transferred room from [facility] to [facility],Airborne precaution Reason for consultation: Cardiac evaluation of progressive shortness of breath and chest pain. History of congestive heart failure,coronary artery disease with myocardial infarction with stents 2012. Seen by me and Dr. Gonzales, refused to be examined. Objective - Vital Signs/Intake and Output Vital Signs (last 24 hours): Temp Pulse Resp BP Pulse Ox 98.2 F 101 H 19 135/69 97 01/16/18 06:00 01/16/18 06:00 01/16/18 06:00 01/16/18 06:00 01/16/18 06:00 Intake and Output: 01/16/18 01/16/18 06:59 18:59 Intake Total 590 Balance 590 - Medications Medications: Current Medications Acetaminophen (Tylenol 325mg Tab) 650 mg PO Q6 PRN PRN Reason: Pain, moderate (4-7) Last Admin: 01/14/18 23:34 Dose: 650 mg Atorvastatin Calcium (Lipitor) 20 mg PO DIN [facility] Last Admin: 01/15/18 17:47 Dose: 20 mg Carvedilol (Coreg) 6.25 mg PO BID [facility] Last Admin: 01/15/18 17:47 Dose: 6.25 mg Furosemide (Lasix) 40 mg IVP DAILY [facility] Last Admin: 01/15/18 09:56 Dose: 40 mg Ceftriaxone Sodium (Rocephin 1 Gram Ivpb) 1 gm in 100 mls @ 100 mls/hr IVPB DAILY [facility] PRN Reason: Protocol Last Admin: 01/15/18 09:55 Dose: 100 mls/hr Azithromycin (Zithromax 500mg In Ns) 500 mg in 250 mls @ 167 mls/hr IVPB DAILY [facility] PRN Reason: Protocol Last Admin: 01/15/18 11:18 Dose: 167 mls/hr Levalbuterol HCl (Xopenex) 0.63 mg IH [id number] PRN PRN Reason: Shortness of Breath Levalbuterol HCl (Xopenex) 0.63 mg IH TIDRESP [facility] Last Admin: 01/16/18 07:38 Dose: Not Given Losartan Potassium (Cozaar) 25 mg PO DAILY [facility] Last Admin: 01/15/18 09:56 Dose: 25 mg Oxycodone HCl (Oxycodone Immediate Release Tab) 5 mg PO Q6H PRN PRN Reason: Pain, moderate (4-7) Last Admin: 01/16/18 06:03 Dose: 5 mg Pantoprazole Sodium (Protonix Ec Tab) 40 mg PO 0600 [facility] Last Admin: 01/16/18 05:59 Dose: 40 mg Tamsulosin HCl (Flomax) 0.4 mg PO DAILY [facility] Last Admin: 01/15/18 09:56 Dose: 0.4 mg - Labs Labs: 01/15/18 07:50 01/15/18 07:50 PT 17.7 SECONDS (9.4-12.5) H 01/15/18 08:30 INR 1.53 01/15/18 08:30 APTT 31.5 Seconds (25.1-36.5) 01/15/18 08:30 - Constitutional Appears: No Acute Distress - Eye Exam Eye Exam: Normal appearance - Respiratory Exam Additional comments: refused to be examined - Cardiovascular Exam Additional comments: refused to be examined - GI/Abdominal Exam Additional comments: refused to be examined - Neurological Exam Neurological Exam: Alert, Awake, Oriented x3 - Psychiatric Exam Psychiatric exam: Anxious Additional comments: upset/angry Assessment and Plan - Assessment and Plan (Free Text) Assessment: A 57 year old male who came in to the ER due to progressive shortness of breath for the past 3 days ,worsening on exertion. Also complaints of left chest pain and right posterior lower chest aggravated during inspiration. non radiating. Decreased exercise tolerance .History of hypertension, congestive heart failure, coronary artery disease with myocardial infarction with stents 2012, gout, hyperlipidemia, current smoker.current alcohol abuse, Admits to unintentional weight loss, fatigue, night sweats,coughing up blood/pinkish 3 times prior to admission, taking coumadin for questionable LV thrombus. Airborne precaution initiated. Chest X ray showed right moderate pleural effusion, pneumonia. Shortness of breath attributed to moderate right pleural effusion/pneumonia. Follows up with Dr. Hurst- [employer]m Mechanic ([facility]). Plan: Patient opened windows in his room 271. for safety reasons,he was transferred to [facility] He is upset and refused to be examined, no distress, awake,alert On Airborne precaution ID on consult,work up for TB in progress CT of chest pending results ECHO done-Left ventricle moderately dialted,severely impaired systolic function no left thrombus noted,moderate mitral regurgitation and tricuspid regurgitation Pulmonary hypertension Hold Coumadin for hemoptysis Pulmonary on consult Continue current treatment Continue current medications Further recommendations during hospital course. Will follow up Plan and treatment discussed with Dr. Christian Llamas will resume care on Wednesday.
[2018-01-16] MEDS: cefTRIAXone 1 gm 1 GM/100 ML BAG IVPB SCH ×3 (08:59→15:09)
[2018-01-16] MEDS: Azithromycin 500MG/NS 250ml 500 MG/250 ML BAG IVPB SCH ×2 (09:10→16:41)
--- NOTE | 2018-01-16 09:58 | CT ---
Date of service: 01/15/2018 PROCEDURE: CT Chest with contrast (Pulmonary Angiogram) HISTORY: RLL Infiltrate / PE R/o COMPARISON: None available. TECHNIQUE: Axial computed tomography images were obtained of the chest in the pulmonary arterial phase of enhancement. Coronal and sagittal reformatted images were created and reviewed. Intravenous contrast dose: 100 mL Visipaque 320 Radiation dose: Total exam DLP = 393.17 mGy-cm. This CT exam was performed using one or more of the following dose reduction techniques: Automated exposure control, adjustment of the mA and/or kV according to patient size, and/or use of iterative reconstruction technique. FINDINGS: PULMONARY ARTERIES: There is no central pulmonary embolism. There are apparent filling defects in the distal smaller pulmonary artery branches in the right lower lobe. AORTA: No thoracic aortic aneurysm. LUNGS: There is mild biapical paraseptal emphysema, worse on the right. There is a 2.7 x 1.8 cm subpleural nodule in the right upper lobe. There is a 1.8 x 1.6 cm subpleural nodule in the left posterior lung base. There is airspace disease in the lateral segment of the right middle lobe. There is extensive confluent patchy and ground-glass airspace disease in the right lower lobe. PLEURAL SPACES: Unremarkable. No effusion or pneumothorax. HEART: Severe cardiomegaly. No significant pericardial effusion. LYMPH NODES: There are mildly enlarged mediastinal and right hilar lymphadenopathy. BONES, CHEST WALL: Unremarkable. No fracture or destructive lesion OTHER FINDINGS: Unremarkable. IMPRESSION: No evidence of central pulmonary embolism. Apparent filling defects in the smaller distal branches of the right lower lobe pulmonary artery may be artifactual or represent tiny pulmonary emboli. 2.7 x 1.8 cm subpleural nodule in the right upper lobe and 1.8 x 1.6 cm subpleural nodule in the posterior left lung base. Correlation with PET-CT/ is recommended for definitive evaluation. Patchy and ground-glass airspace disease in the right lower lobe most compatible with pneumonia. Aspiration pneumonia is a consideration. Follow-up to resolution is advised. Mediastinal and right hilar lymphadenopathy, nonspecific and may be reactive, inflammatory or metastatic in etiology.
--- NOTE | 2018-01-16 10:33 | CT ---
Date of service: 01/15/2018 PROCEDURE: CT Chest, Abdomen and Pelvis without intravenous contrast HISTORY: high alk phos r/o gb ds COMPARISON: None available. TECHNIQUE: Radiation dose: Total exam DLP = 440.30 mGy-cm. This CT exam was performed using one or more of the following dose reduction techniques: Automated exposure control, adjustment of the mA and/or kV according to patient size, and/or use of iterative reconstruction technique. FINDINGS: CT CHEST WITHOUT CONTRAST: LUNGS: Biapical pleural blebs, worse on the right. 2.7 x 1.8 cm right upper lobe subpleural mass and 1.8 x 1.6 cm left posterior lung base subpleural mass. Patchy and ground-glass airspace disease in the right lower lobe. There is linear atelectasis in the lingula. MEDIASTINUM: Moderate cardiomegaly. Normal caliber aorta and pulmonary arterial trunk. No pericardial effusion. LYMPH NODES: Mildly enlarged mediastinal and right hilar lymph nodes. PLEURA: Unremarkable. No pneumothorax. No pleural fluid. BONES: Unremarkable. OTHER FINDINGS: None. CT ABDOMEN AND PELVIS: LIVER: Unremarkable. No gross lesion or ductal dilatation. GALLBLADDER AND BILE DUCTS: Unremarkable. PANCREAS: Unremarkable. No gross lesion or ductal dilatation. SPLEEN: Unremarkable. ADRENALS: Unremarkable. No mass. KIDNEYS AND URETERS: Unremarkable. No hydronephrosis. No solid mass. VASCULATURE: Bilobed infrarenal aortic aneurysm measuring 3.0 cm. BOWEL: The small bowel loops are normal in caliber. There is moderate amount of stool in the colon. APPENDIX: Normal appendix. PERITONEUM: No free fluid. No free air. LYMPH NODES: No enlarged lymph nodes. BLADDER: Decompressed. REPRODUCTIVE: Unremarkable. BONES: No acute fracture. Within normal limits for the patient's age. OTHER FINDINGS: None. IMPRESSION: 1.2.7 x 1.8 cm subpleural nodule in the right upper lobe and 1.8 x 1.6 cm subpleural nodule in the posterior left lung base. Correlation with PET-CT/ is recommended for definitive evaluation. 2. Patchy and ground-glass airspace disease in the right lower lobe most compatible with pneumonia. Aspiration pneumonia is a consideration. Follow-up to resolution is advised. 3. Mediastinal and right hilar lymphadenopathy, nonspecific and may be reactive, inflammatory or metastatic in etiology. 4. Infrarenal aortic aneurysm, otherwise no acute findings in the abdomen and pelvis. A preliminary report was provided by [facility].
--- NOTE | 2018-01-16 16:22 | CP.PCM.PN ---
<Grant Perkins - Last Filed: 01/16/18 16:11> Subjective - Date & Time of Evaluation Date of Evaluation: 01/16/18 Time of Evaluation: 16:11 - Subjective Subjective: Grant Perkins DO PGY1 - Internal Medicine [facility] [place] - Hospital Progress Note Patient was seen and examined at bedside this AM under isolation precaution. Yesterday evening patient was refusing to wear N95 isolation mask and go for testing; He became argumentative over testing and finally complied for CTAP/ CT angio. This morning patient was educated on his hospital course and why he is in isolation. He kept voicing nothing is improving and feels that we are giving him the wrong treatment. Patient was reassured that IV Antibiotics take time to take effect. Objective - Vital Signs/Intake and Output Vital Signs (last 24 hours): Temp Pulse Resp BP Pulse Ox 98.7 F 101 H 19 103/75 97 01/16/18 11:54 01/16/18 11:54 01/16/18 11:54 01/16/18 11:54 01/16/18 06:00 Intake and Output: 01/16/18 01/16/18 06:59 18:59 Intake Total 590 Balance 590 - Medications Medications: Current Medications Acetaminophen (Tylenol 325mg Tab) 650 mg PO Q6 PRN PRN Reason: Pain, moderate (4-7) Last Admin: 01/14/18 23:34 Dose: 650 mg Atorvastatin Calcium (Lipitor) 20 mg PO DIN [facility] Last Admin: 01/15/18 17:47 Dose: 20 mg Carvedilol (Coreg) 6.25 mg PO BID [facility] Last Admin: 01/16/18 08:59 Dose: 6.25 mg Furosemide (Lasix) 40 mg IVP DAILY [facility] Last Admin: 01/16/18 09:09 Dose: Not Given Ceftriaxone Sodium (Rocephin 1 Gram Ivpb) 1 gm in 100 mls @ 100 mls/hr IVPB DAILY [facility] PRN Reason: Protocol Last Admin: 01/16/18 15:09 Dose: 100 mls/hr Azithromycin (Zithromax 500mg In Ns) 500 mg in 250 mls @ 167 mls/hr IVPB DAILY [facility] PRN Reason: Protocol Last Admin: 01/16/18 09:10 Dose: Not Given Levalbuterol HCl (Xopenex) 0.63 mg IH [id number] PRN PRN Reason: Shortness of Breath Levalbuterol HCl (Xopenex) 0.63 mg IH TIDRESP [facility] Last Admin: 01/16/18 13:35 Dose: Not Given Losartan Potassium (Cozaar) 25 mg PO DAILY [facility] Last Admin: 01/16/18 08:59 Dose: 25 mg Oxycodone HCl (Oxycodone Immediate Release Tab) 5 mg PO Q6H PRN PRN Reason: Pain, moderate (4-7) Last Admin: 01/16/18 15:05 Dose: 5 mg Pantoprazole Sodium (Protonix Ec Tab) 40 mg PO 0600 [facility] Last Admin: 01/16/18 05:59 Dose: 40 mg Tamsulosin HCl (Flomax) 0.4 mg PO DAILY [facility] Last Admin: 01/16/18 09:08 Dose: Not Given - Labs Labs: 01/15/18 07:50 01/15/18 07:50 PT 17.7 SECONDS (9.4-12.5) H 01/15/18 08:30 INR 1.53 01/15/18 08:30 APTT 31.5 Seconds (25.1-36.5) 01/15/18 08:30 Physical Exam - Constitutional Appears: Well, In Acute Distress - Head Exam Head Exam: ATRAUMATIC, NORMAL INSPECTION, NORMOCEPHALIC - Eye Exam Eye Exam: EOMI, Normal appearance, PERRL Pupil Exam: NORMAL ACCOMODATION, PERRL - ENT Exam ENT Exam: Mucous Membranes Dry - Neck Exam Neck exam: Positive for: Normal Inspection - Respiratory Exam Respiratory Exam: RIGHT LOWER LUNG CRACKLES / RONCHI - Cardiovascular Exam Cardiovascular Exam: REGULAR RHYTHM, +S1, +S2 - GI/Abdominal Exam GI & Abdominal Exam: Normal Bowel Sounds, Soft. absent: Tenderness; Garcia sign negative - Rectal Exam Rectal Exam: Deferred - Extremities Exam Extremities exam: Positive for: full ROM, normal inspection. Negative for: calf tenderness, pedal edema - Back Exam Back exam: NORMAL INSPECTION - Neurological Exam Neurological exam: Alert, CN II-XII Intact, Normal Gait, Oriented x3, Reflexes Normal - Psychiatric Exam Psychiatric exam: Anxious - Skin Skin Exam: Dry, Intact, Normal Color, Warm Assessment and Plan - Assessment and Plan (Free Text) Assessment: 57 y/o male with PMH of HTN, CHF, CAD with VT (s/p 2 stents in 2013), gout, HLD presents to ED c/o progressive shortness of breath for the past 3 days. CXR: showed right lower air space, atelectasis vs pneumonia, moderate right pleural effusion. moderate cardiomegaly Plan: Pneumonia CXR: showed right lower air space, atelectasis vs pneumonia, moderate right pleural effusion. moderate cardiomegaly WBC improving C/w Azithromax Day 2 C/w Rocephin 1 gm Xopenx TID and q6 prn Procal 0.44 Blood culture 2/2 negative @ [address] angio chest: Apparent filling defects in the smaller distal branches of the Right lower lobe pulmonary artery - artifact vs tiny pulmonary emboli 2.7x1.8 CM mass in R upper lobe; 1.8x1.6 CM in posterior left lung base; Patchy ground-glass airspace disease in right lower lobe most compatible w/ pneumonia or aspiration pna Mediastinal + R hilar LAD - reactive, inflammatory, or mets Pulmonology following ID Following Back Pain: Oxycodone 5 Q6H PRN - Moderate pain Tylenol 650 Q6H PRN - Mild pain R/O Tuberculosis Patient has night sweets, weight loss, fatigue, hemoptysis, from endemic country of TB AFB samples - First sample preliminary stain negative Sputum culture Quantiferon ordered ID Following Isolation HFrEF exacerbation EF 36.9% Continue Carvidolol 6.25mg Continue Losartan 25mg daily BNP 4070 Lasix 40mg IVP daily Daily weight I/O daily Fluid restriction Cardiology following H/O CAD EKG: sinus tachy @108. LVH Trop - x1. will trend Patient was on coumadin, stopped few days ago PT/PTT/INR: 18.2/30.2/1.58 Hold coumadin Lipitor 20 QD Anemia H/H: 12.2/ 38.9 MCV: 77.5 - yesterday Monitor closely; Patient did not allow lab draw this AM HLD Continue Lipitor Lipid panel H/O BPH Continue home med Flomax 0.4 mg UA GI ppx Protonix Heart halthy diet DVT ppx SCD DISPO: Patient will require inpatient admission under isolation precaution for rule out of TB, and workup of SOB/Dyspnea. Patient will require extensive workup of his lung masses. Patient is noncompliant w/ treatment/ diagnosis plans; encourage education and reassurance. Patient was seen, examined, and discussed w/ attending physician Dr. Monique Perkins DO - PGY1 Internal Medicine [facility] [place] <Car Amaya - Last Filed: 01/16/18 17:53> Objective - Vital Signs/Intake and Output Vital Signs (last 24 hours): Temp Pulse Resp BP Pulse Ox 98.7 F 98 H 19 103/75 97 01/16/18 11:54 01/16/18 14:00 01/16/18 11:54 01/16/18 11:54 01/16/18 06:00 Intake and Output: 01/16/18 01/16/18 06:59 18:59 Intake Total 590 Balance 590 - Medications Medications: Current Medications Acetaminophen (Tylenol 325mg Tab) 650 mg PO Q6 PRN PRN Reason: Pain, moderate (4-7) Last Admin: 01/14/18 23:34 Dose: 650 mg Atorvastatin Calcium (Lipitor) 20 mg PO DIN [facility] Last Admin: 01/15/18 17:47 Dose: 20 mg Carvedilol (Coreg) 6.25 mg PO BID [facility] Last Admin: 01/16/18 08:59 Dose: 6.25 mg Furosemide (Lasix) 40 mg IVP DAILY [facility] Last Admin: 01/15/18 09:56 Dose: 40 mg Ceftriaxone Sodium (Rocephin 1 Gram Ivpb) 1 gm in 100 mls @ 100 mls/hr IVPB DAILY [facility] PRN Reason: Protocol Last Admin: 01/16/18 15:09 Dose: 100 mls/hr Azithromycin (Zithromax 500mg In Ns) 500 mg in 250 mls @ 167 mls/hr IVPB DAILY [facility] PRN Reason: Protocol Last Admin: 01/16/18 16:41 Dose: 167 mls/hr Levalbuterol HCl (Xopenex) 0.63 mg IH [id number] PRN PRN Reason: Shortness of Breath Last Admin: 01/16/18 17:27 Dose: 0.63 mg Levalbuterol HCl (Xopenex) 0.63 mg IH TIDRESP [facility] Last Admin: 01/16/18 13:35 Dose: Not Given Losartan Potassium (Cozaar) 25 mg PO DAILY [facility] Last Admin: 01/16/18 08:59 Dose: 25 mg Morphine Sulfate (Morphine) 2 mg IVP Q6H PRN PRN Reason: Pain, severe (8-10) Oxycodone HCl (Oxycodone Immediate Release Tab) 5 mg PO Q6H PRN PRN Reason: Pain, moderate (4-7) Last Admin: 01/16/18 15:05 Dose: 5 mg Pantoprazole Sodium (Protonix Ec Tab) 40 mg PO 0600 [facility] Last Admin: 01/16/18 05:59 Dose: 40 mg Tamsulosin HCl (Flomax) 0.4 mg PO DAILY [facility] Last Admin: 01/16/18 09:08 Dose: Not Given - Labs Labs: 01/15/18 07:50 01/15/18 07:50 PT 17.7 SECONDS (9.4-12.5) H 01/15/18 08:30 INR 1.53 01/15/18 08:30 APTT 31.5 Seconds (25.1-36.5) 01/15/18 08:30 Attending/Attestation - Attestation I have personally seen and examined this patient.: Yes I have fully participated in the care of the patient.: Yes I have reviewed all pertinent clinical information, including history, physical exam and plan: Yes Notes (Text): 01/16/18 17:45 57 year old male with past medical history of CHF, CAD s/p stents, ?history of cardiac thrombus on coumadin and dyslipidemia who presented with complaint of progressive dyspnea and hemoptysis. CXR showed right lower air space disease, possible pneumonia for which patient is on iv antibiotics. Procalcitonin is 0.44. Probnp was also elevated at 4070. Echocardiogram shows EF 36.9% but no thrombus. Patient is on iv lasix. Cardiology is following. Initial AFB prelim is negative. Patient refused 2nd/3rd AFB studies. ID and pulmonary notes reviewed; doubt TB. CT chest was obtained yesterday which showed 2.7 x 1.8 cm mass in right upper lobe and 1.8 x 1.6 cm in posterior left lung base; patchy ground-glass airspace disease in right lower lobe; and mediastinal and right hilar LAD. Will review film with pulmonary and IR tomorrow. His coumadin is on hold for now due to hemoptysis. Echo study as above did not show thrombus. Diagnostic studies including CT scan were discussed in detail with patient this morning, >20 mins. Car Amaya MD Hospitalist.
--- NOTE | 2018-01-16 16:34 | PN ---
Copied To: Jignesh Gonzales MD Attending MD: Jignesh Gonzales MD DATE: 01/16/2018 LOCATION: The patient is in room 275, bed 1. REASON FOR CONSULTATION: Shortness of breath, chest pain, history of CHF, coronary artery disease with myocardial infarction with stent insertion in 2012. BRIEF HISTORY OF PRESENT ILLNESS: The patient admitted with complaints of right posterior lower chest pain, which is continuous and gets aggravated with inspiration. Also, he has some local tenderness in the same area. The patient also developed shortness of breath since last few days. Poor compliant patient. Still smokes and has also history of alcohol abuse. The patient is still complaining pain at the same site, getting worse with inspiration. The patient earlier refused nurse practitioner, Fidelia Obregon. He refused examination by her, but now he agreed to be examined by me. PHYSICAL EXAMINATION: VITAL SIGNS: Blood pressure 103/75, respirations 19, pulse 101, temperature 98.7. HEENT: Head is normocephalic. Eyes: Pupils normal. Conjunctivae slightly pale. NECK: JVP low. Carotids equal. THORAX: AP diameter normal. LUNGS: The patient has diminished breath sound on the right base. CARDIOVASCULAR: S1 and S2. ABDOMEN: Soft, nontender. No organomegaly. Bowel sounds normal. EXTREMITIES: No clubbing. No cyanosis. LABORATORY DATA: WBC 11.4, hemoglobin 12.4, hematocrit 39.1, platelet 315. Sodium 143, potassium 4.2, BUN 17, creatinine 0.7, total bilirubin 2.5, AST 21, ALT 12. Protein, albumin normal. TSH is 0.93. DIAGNOSES: chest pain, pleuritic type, most likely associated with pneumonia and pleural effusion in the right low lung; severe cardiomyopathy. Stress test on 09/23/2016 showed left ventricular ejection fraction 25%, old anterolateral myocardial infarction with ischemia. Echocardiogram on 09/23/2016 showed severely impaired left ventricular systolic function with left ventricular ejection fraction 25%, apical hypokinesis and anterior wall hypokinesis. Cannot rule out thrombus on the left ventricle, ventricular apex of the posterior leaflet of the mitral valve. Trace mitral regurgitation, moderate to severe pulmonary hypertension. The patient had repeat echocardiogram yesterday on 01/15/2018, which showed ejection fraction of 37%, moderately dilated left ventricle, severely impaired systolic function with left ventricular ejection fraction of 37%. No left ventricular thrombus noted on the study. Moderate mitral regurgitation, moderate tricuspid regurgitation, moderate pulmonary hypertension with right ventricular systolic pressure 53 mmHg. PLAN: The patient follows with Dr. Hurst, who is a mac artist in [place]. The patient was on Coumadin, but Coumadin held because he is also getting some hemoptysis, bright red blood when he coughs, so the patient was on anticoagulation because of presumably on echo finding of thrombus a while back by Dr. Hurst, so right now on the echo did yesterday, we do not see any thrombus, anyhow cannot give Coumadin because of hemoptysis. We will continue carvedilol 6.25 b.i.d., losartan 25 daily, furosemide 40 IV daily, atorvastatin 20 daily, Protonix 40 daily, ceftriaxone 1 g IV daily, Xopenex hand nebulizer therapy, azithromycin 500 mg IV daily. Tomorrow, Dr. Barron will follow the patient. Jignesh Gonzales MD
[2018-01-16] MEDS: Morphine 2 mg/ml ISec IVP PRN (17:56)
--- NOTE | 2018-01-16 20:13 | PN ---
Copied To: Jignesh Jacob MD Attending MD: Jignesh Jacob MD DATE: 01/16/2018 PULMONARY PROGRESS NOTE REFERRING PHYSICIAN: Dr. Amaya. SUBJECTIVE: He is sitting up in a chair, has been refusing his medication, refused antibiotics, did take pain medications. Has some right-sided pleuritic pain. No nausea or vomiting. No diarrhea. No leg pain or leg swelling. OBJECTIVE: GENERAL: In no acute distress. VITAL SIGNS: Temperature is 98, heart rate is 101, respiratory rate is 20, blood pressure 103/75, pulse ox 97% on room air. HEENT: Moist mucous membrane. Crowded airway. NECK: Supple. No JVD. LUNGS: Have a few crackles at the bases. HEART: S1 and S2. ABDOMEN: Soft, nontender, no organomegaly. EXTREMITIES: There is no edema. NEUROLOGIC: Awake, alert, and follows simple command. MEDICATIONS: He is on Coreg 6.25 mg twice a day, Cozaar 25 mg daily, Flomax 0.4 mg daily, Lasix 40 mg daily, Lipitor 20 mg daily, oxycodone immediate release 5 mg every 6 hours p.r.n., Protonix 40 mg daily, Rocephin 1 g IV daily, Tylenol p.r.n., Xopenex inhaled every 6 hours p.r.n. LABORATORY DATA: Reviewed. His white count yesterday was 11. No lab work is available since yesterday. Procalcitonin yesterday was 0.4. Legionella in the urine antigen is negative. Microbiology: Blood culture and urine culture, there is no growth. Has a CAT scan of the chest done yesterday which shows subpleural nodule up to 2.7 x 1.8, the other one is 1.8 x 1.6 cm, also have infiltrate, patchy and airspace disease in the right lower lobe most compatible with pneumonia, also mediastinal and right hilar adenopathy, nonspecific though. IMPRESSION AND PLAN: Severe cardiomyopathy, pulmonary hypertension, history of coronary artery disease, right lower lobe some atelectasis, have infiltrate, also have hilar and mediastinal some adenopathy on the right side, subpleural lung nodule. I had a long discussion with the patient, convinced him to take antibiotics. Clinically, I do not think it is a TB, but the patient being followed by Infectious Diseases. Severe cardiomyopathy, being followed by Cardiology. Pulmonary point of view, need further investigation and workup including biopsy of the subpleural nodule. The patient is refusing anything to be done at present time. Understanding risks, benefits ratio if the patient continues to refuse biopsy, may consider follow up study in 3 months and also probably to get a PET scan as outpatient. For now, continue antibiotics, bronchodilator, infectious diseases, and cardiology followup. Case discussed with the nursing staff. Thank you and we will follow with you. Jignehs Jacob MD
[2018-01-17] MEDS: Morphine 2 mg/ml ISec IVP PRN (00:22)
[2018-01-17] MEDS: Pantoprazole 40 mg EC Tab PO SCH (05:10)
[2018-01-17 07:27] LABS: BASO # 0.02 K/mm3 (0.0-2.0); BASO % 0.2 % (0.0-3.0); EOS % 0.1 % (1.5-5.0); GRAN # 8.75 (1.4-6.5); GRAN % 80.5 % (50.0-68.0); LYMPH # 0.9 (1.2-3.4); MEAN CELL VOLUME 74.8 fl (80.0-105.0); MEAN CORPUSCULAR HEMOGLOBIN 24.3 pg (25.0-35.0); MEAN CORPUSCULAR HGB CONC 32.4 g/dl (31.0-37.0); MEAN PLATELET VOLUME 9.8 fl (7.0-11.0); MONO # 1.2 (0.1-0.6); MONO % 11.2 % (1.0-6.0); RBC 4.53 10^6/uL (3.5-6.1); RED CELL DISTRIBUTION WIDTH 19.8 % (11.5-14.5); WHITE BLOOD COUNT 10.9 10^3/ul (4.5-11.0)
[2018-01-17 07:32] LABS: INR 1.76; PARTIAL THROMBOPLASTIN TIME 29.7 Seconds (25.1-36.5); PROTHROMBIN TIME 20.5 SECONDS (9.4-12.5)
[2018-01-17 07:49] LABS: ALBUMIN 3.2 g/dL (3.0-4.8); ALT/SGPT 84 U/L (7-56); AST/SGOT 143 U/L (17-59); BLOOD UREA NITROGEN 28 mg/dL (7-21); CALCIUM 8.9 mg/dL (8.4-10.5); GFR NON-AFRICAN AMERICAN > 60
[2018-01-17] MEDS: Levalbuterol 0.63 MG/3 ML Inhal Soln UD IH SCH ×2 (07:50→19:59)
--- NOTE | 2018-01-17 09:08 | PN ---
Copied To: Andreas Shields MD Attending MD: Andreas Shields MD DATE: 01/16/2018 SUBJECTIVE: The patient is in bed, in no acute distress. PHYSICAL EXAMINATION: VITAL SIGNS: On exam, temperature is 98, blood pressure is 135/60, respiratory rate of 18, heart rate of 101. HEENT: Unremarkable. NECK: Supple. LUNGS: Have decreased breath sounds. HEART: Normal S1, S2. ABDOMEN: Soft, nontender. LABORATORY DATA: Laboratory examination reveals a white count of 11,400, hemoglobin of 12, platelets of 315. BUN of 17, creatinine of 0.7. Procalcitonin is 0.44 and urinalysis is noted. Serology is noted. Urine for Legionella antigen is negative. The patient had a CAT scan of the chest, angio. No evidence of pulmonary emboli. The patient had a CAT scan of the abdomen and chest also yesterday, 1.2 x 1.8 subpleural nodule in the right upper lobe and 1.8 x 1.6 subpleural nodule in the posterior left lung, patchy ground-glass airspace disease in the right lower lobe, aspiration pneumonia is consideration. Mediastinal right hilar lymphadenopathy, nonspecific may be reactive. Right lower lobe patchy infiltrate is noted. Dr. Jacob's consultation is reviewed. Review of orders reveals the patient to be on ceftriaxone and azithromycin. The patient has been afebrile throughout the hospitalization, does have tachycardia, dyspnea. Dr. Amaya's note is reviewed. ASSESSMENT AND PLAN: A 57-year-old male with a history of coronary artery disease, cardiomyopathy, myocardial infarction, high cholesterol, congestive heart failure, arthritis, depression, admitted with hemoptysis, tachycardia, dyspnea, right-sided pleuritic chest pain, sepsis with right-sided community-acquired pneumonia, although the man is from [place], tuberculosis in the differential although less likely. Awaiting for Acid-Fast Bacilli smears and initial workup, multiple nodules on CAT scan in addition to the infiltrate and mediastinal adenopathy. We will review with Dr. Jacob. requesting Dr. Jacob's opinion on the CAT scan findings. Andreas Shields MD
[2018-01-17] MEDS: cefTRIAXone 1 gm 1 GM/100 ML BAG IVPB SCH (10:07)
[2018-01-17] MEDS: Azithromycin 500MG/NS 250ml 500 MG/250 ML BAG IVPB SCH (10:08)
[2018-01-17] MEDS: oxyCODONE 5 mg Immediate Release Tab PO PRN ×2 (10:11→20:07)
[2018-01-17 12:47] LABS: HEPATITIS B SURFACE AG Negative (NEGATIVE)
[2018-01-17 12:54] LABS: HEPATITIS A IGM NEGATIVE (NEGATIVE); HEPATITIS B CORE AB NEGATIVE (NEGATIVE)
[2018-01-17 13:04] LABS: HEPATITIS C ANTIBODY NEGATIVE (NEGATIVE)
--- NOTE | 2018-01-17 16:05 | CP.PCM.PN ---
<Cuco Adams Tomeka - Last Filed: 01/17/18 16:27> Subjective - Date & Time of Evaluation Date of Evaluation: 01/17/18 Time of Evaluation: 15:42 - Subjective Subjective: Medicine progress note - Bryan, PGY - 2, IM resident Patient seen and examined at bedside. Patient is very adamant that he does not have TB and refuses to be cooperative with AFB draws. Denies any new acute complaints, still complaining of back pain Objective - Vital Signs/Intake and Output Vital Signs (last 24 hours): Temp Pulse Resp BP Pulse Ox 98.6 F 114 H 20 135/78 100 01/17/18 12:00 01/17/18 12:00 01/17/18 12:00 01/17/18 12:00 01/17/18 06:00 Intake and Output: 01/17/18 01/17/18 06:59 18:59 Intake Total 540 Output Total 2 Balance 538 - Medications Medications: Current Medications Acetaminophen (Tylenol 325mg Tab) 650 mg PO Q6 PRN PRN Reason: Pain, moderate (4-7) Last Admin: 01/14/18 23:34 Dose: 650 mg Atorvastatin Calcium (Lipitor) 20 mg PO DIN [facility] Last Admin: 01/16/18 17:57 Dose: 20 mg Carvedilol (Coreg) 6.25 mg PO BID [facility] Last Admin: 01/17/18 10:08 Dose: 6.25 mg Furosemide (Lasix) 40 mg IVP DAILY [facility] Last Admin: 01/17/18 10:08 Dose: 40 mg Ceftriaxone Sodium (Rocephin 1 Gram Ivpb) 1 gm in 100 mls @ 100 mls/hr IVPB DAILY [facility] PRN Reason: Protocol Last Admin: 01/17/18 10:07 Dose: 100 mls/hr Azithromycin (Zithromax 500mg In Ns) 500 mg in 250 mls @ 167 mls/hr IVPB DAILY [facility] PRN Reason: Protocol Last Admin: 01/17/18 10:08 Dose: 167 mls/hr Levalbuterol HCl (Xopenex) 0.63 mg IH [id number] PRN PRN Reason: Shortness of Breath Last Admin: 01/16/18 17:27 Dose: 0.63 mg Levalbuterol HCl (Xopenex) 0.63 mg IH TIDRESP [facility] Last Admin: 01/17/18 07:50 Dose: Not Given Losartan Potassium (Cozaar) 25 mg PO DAILY [facility] Last Admin: 01/17/18 10:08 Dose: 25 mg Morphine Sulfate (Morphine) 2 mg IVP Q6H PRN PRN Reason: Pain, severe (8-10) Last Admin: 01/17/18 00:22 Dose: 2 mg Oxycodone HCl (Oxycodone Immediate Release Tab) 5 mg PO Q6H PRN PRN Reason: Pain, moderate (4-7) Last Admin: 01/17/18 10:11 Dose: 5 mg Pantoprazole Sodium (Protonix Ec Tab) 40 mg PO 0600 [facility] Last Admin: 01/17/18 05:10 Dose: 40 mg Tamsulosin HCl (Flomax) 0.4 mg PO DAILY [facility] Last Admin: 01/17/18 10:08 Dose: 0.4 mg - Labs Labs: 01/17/18 06:30 01/17/18 06:30 PT 20.5 SECONDS (9.4-12.5) H 01/17/18 06:30 INR 1.76 01/17/18 06:30 APTT 29.7 Seconds (25.1-36.5) 01/17/18 06:30 - Constitutional Appears: Well - Head Exam Head Exam: ATRAUMATIC, NORMAL INSPECTION, NORMOCEPHALIC - Eye Exam Eye Exam: EOMI, Normal appearance, PERRL Pupil Exam: NORMAL ACCOMODATION, PERRL - ENT Exam ENT Exam: Mucous Membranes Moist, Normal Exam - Neck Exam Neck Exam: Full ROM, Normal Inspection. absent: Lymphadenopathy - Respiratory Exam Respiratory Exam: Clear to Ausculation Bilateral, NORMAL BREATHING PATTERN - Cardiovascular Exam Cardiovascular Exam: REGULAR RHYTHM, +S1, +S2. absent: Murmur - GI/Abdominal Exam GI & Abdominal Exam: Soft, Normal Bowel Sounds. absent: Tenderness - Extremities Exam Extremities Exam: Full ROM, Normal Capillary Refill, Normal Inspection. absent : Joint Swelling, Pedal Edema - Back Exam Back Exam: NORMAL INSPECTION - Neurological Exam Neurological Exam: Alert, Awake, CN II-XII Intact, Normal Gait, Oriented x3 - Psychiatric Exam Psychiatric exam: Normal Affect, Normal Mood - Skin Skin Exam: Dry, Intact, Normal Color, Warm Assessment and Plan - Assessment and Plan (Free Text) Assessment: 57 y/o male with PMH of HTN, CHF, CAD with CT (s/p 2 stents in 2013), gout, HLD presents to ED c/o progressive shortness of breath for the past 3 days. CXR: showed right lower air space, atelectasis vs pneumonia, moderate right pleural effusion. moderate cardiomegaly Plan: Pneumonia C/w Azithromax Day 2 C/w Rocephin 1 gm Xopenx TID and q6 prn ID consulted Pulmonary Nodules Patient keeps refusing biopsy studies Pulmonology following Back Pain: Oxycodone 5 Q6H PRN - Moderate pain Tylenol 650 Q6H PRN - Mild pain R/O Tuberculosis Patient has night sweets, weight loss, fatigue, hemoptysis, from endemic country of TB AFB samples - First sample preliminary stain negative, second obtained; patient refusing third Sputum culture Quantiferon negative ID Following Isolation HFrEF exacerbation Continue Carvedilol 6.25mg Continue Losartan 25mg daily Lasix 40mg IVP daily Daily weight Strict I/O daily Fluid restriction Cardiology following H/O CAD Hold coumadin Lipitor 20 QD Anemia H/H: trended down, but stable, no signs of overt bleeding Monitor closely; Patient did not allow lab draw this AM HLD Continue Lipitor H/O BPH Continue home med Flomax 0.4 mg PPX - Protonix/SCD <Car Amaya - Last Filed: 01/17/18 16:54> Objective - Vital Signs/Intake and Output Vital Signs (last 24 hours): Temp Pulse Resp BP Pulse Ox 98.6 F 114 H 20 135/78 100 01/17/18 12:00 01/17/18 12:00 01/17/18 12:00 01/17/18 12:00 01/17/18 06:00 Intake and Output: 01/17/18 01/17/18 06:59 18:59 Intake Total 540 Output Total 2 Balance 538 - Medications Medications: Current Medications Acetaminophen (Tylenol 325mg Tab) 650 mg PO Q6 PRN PRN Reason: Pain, moderate (4-7) Last Admin: 01/14/18 23:34 Dose: 650 mg Atorvastatin Calcium (Lipitor) 20 mg PO DIN [facility] Last Admin: 01/16/18 17:57 Dose: 20 mg Carvedilol (Coreg) 6.25 mg PO BID [facility] Last Admin: 01/17/18 10:08 Dose: 6.25 mg Furosemide (Lasix) 40 mg IVP DAILY [facility] Last Admin: 01/17/18 10:08 Dose: 40 mg Ceftriaxone Sodium (Rocephin 1 Gram Ivpb) 1 gm in 100 mls @ 100 mls/hr IVPB DAILY [facility] PRN Reason: Protocol Last Admin: 01/17/18 10:07 Dose: 100 mls/hr Azithromycin (Zithromax 500mg In Ns) 500 mg in 250 mls @ 167 mls/hr IVPB DAILY [facility] PRN Reason: Protocol Last Admin: 01/17/18 10:08 Dose: 167 mls/hr Levalbuterol HCl (Xopenex) 0.63 mg IH [id number] PRN PRN Reason: Shortness of Breath Last Admin: 01/16/18 17:27 Dose: 0.63 mg Levalbuterol HCl (Xopenex) 0.63 mg IH TIDRESP [facility] Last Admin: 01/17/18 07:50 Dose: Not Given Losartan Potassium (Cozaar) 25 mg PO DAILY [facility] Last Admin: 01/17/18 10:08 Dose: 25 mg Morphine Sulfate (Morphine) 2 mg IVP Q6H PRN PRN Reason: Pain, severe (8-10) Last Admin: 01/17/18 00:22 Dose: 2 mg Oxycodone HCl (Oxycodone Immediate Release Tab) 5 mg PO Q6H PRN PRN Reason: Pain, moderate (4-7) Last Admin: 01/17/18 10:11 Dose: 5 mg Pantoprazole Sodium (Protonix Ec Tab) 40 mg PO 0600 [facility] Last Admin: 01/17/18 05:10 Dose: 40 mg Tamsulosin HCl (Flomax) 0.4 mg PO DAILY [facility] Last Admin: 01/17/18 10:08 Dose: 0.4 mg - Labs Labs: 01/17/18 06:30 01/17/18 06:30 PT 20.5 SECONDS (9.4-12.5) H 01/17/18 06:30 INR 1.76 01/17/18 06:30 APTT 29.7 Seconds (25.1-36.5) 01/17/18 06:30 Attending/Attestation - Attestation I have personally seen and examined this patient.: Yes I have fully participated in the care of the patient.: Yes I have reviewed all pertinent clinical information, including history, physical exam and plan: Yes Notes (Text): 01/17/18 16:51 57 year old male with past medical history of CHF, CAD s/p stents, ?history of cardiac thrombus on coumadin and dyslipidemia who presented with complaint of progressive dyspnea and hemoptysis. CXR showed right lower air space disease, possible pneumonia for which patient is on iv antibiotics. Procalcitonin is 0.44. Probnp was also elevated at 4070. Echocardiogram shows EF 36.9% but no thrombus. Patient is on iv lasix. Cardiology is following. Initial AFB prelim x1 is negative. Secondary AFB was sent but he is refusing to send the 3rd AFB study. ID and pulmonary notes reviewed; doubt TB. CT chest showed 2.7 x 1.8 cm mass in right upper lobe and 1.8 x 1.6 cm in posterior left lung base; patchy ground-glass airspace disease in right lower lobe; and mediastinal and right hilar LAD. CT finding was discussed with the patient and he is refusing further diagnostic workup including possible biopsy. His coumadin is on hold for now due to hemoptysis. Echo study as above did not show thrombus. LFTs are elevated today. Will hold hold his statin and monitor. Hepatitis panel was negative. Car Amaya MD Hospitalist.
--- NOTE | 2018-01-17 17:28 | PN ---
Copied To: Torsten Barron MD Attending MD: Torsten Barron MD DATE: 01/17/2018 SUBJECTIVE: The patient is experiencing shortness of breath as well as hemoptysis. He denies exertional chest pain. PHYSICAL EXAMINATION: VITAL SIGNS: Blood pressure 110/80, heart rate 95, temperature 97.6, respirations 18. HEENT: Normocephalic. CHEST: Diffuse bilateral coarse crepitations. HEART: S1, S2 regular. EXTREMITIES: No edema. LABORATORY DATA AND IMAGING: Today's SMA-7 is within normal limits except for the glucose of 208 and BUN of 26. Total bilirubin is 1.7, slightly elevated. TSH level is within normal limit. Today's hemoglobin and hematocrit are 11 and 33.9. White count and platelet count are within normal limit. Chest and abdomen CT scan on admission revealed 1.27 x 1.8 cm subpleural nodule in the right upper lobe and 1.8 x 1.6 cm subpleural nodule in the posterior left lung field. Correlation with PET/CT is recommended for definitive evaluation, patchy and ground glass airspace disease in the right lower lobe most compatible with pneumonia, mediastinal right hilar lymphadenopathy, infrarenal aortic aneurysm. Chest x-ray revealed cardiomegaly as well as left pleural effusion. EKG revealed sinus tachycardia with PVCs at heart rate 107, left axis deviation, possible left atrial enlargement. Echocardiographic study revealed moderately dilated left ventricle with severely impaired left ventricular systolic function with regional wall motion abnormality noted, moderate pulmonary hypertension. Ejection fraction was estimated at 36.9%. ASSESSMENT: 1. Cardiomyopathy. 2. Rule out pulmonary tuberculosis. 3. Rule out lung malignancy. CONDITIONS: Continue Coreg 6.25 mg twice a day, Cozaar 25 mg once a day, Lasix 20 mg intravenously once a day, Lipitor 20 mg once a day, Rocephin 1 g intravenously daily, Zithromax 500 intravenously daily. I approached the patient about having invasive workup to be done for his lung condition; however, he adamantly refused any testing stating that he will not tolerate any and he is aiming to go home today. The case was discussed with Dr. Amaya and with the medical team. The patient is fully oriented and his decision. Torsten Barron MD
--- NOTE | 2018-01-17 23:07 | PN ---
Copied To: Andreas Shields MD Attending MD: Andreas Shields MD DATE: 01/17/2018 SUBJECTIVE: The patient is in bed in no acute distress, was seen earlier. No fevers and no chills. PHYSICAL EXAMINATION: VITAL SIGNS: Temperature is 98, blood pressure is 108/70, respiratory rate of 20. HEENT: Unremarkable. NECK: Supple. LUNGS: Have decreased breath sounds. HEART: Normal S1, S2. ABDOMEN: Soft, nontender. LABORATORY EXAMINATION: Reveals a white count of 10, hemoglobin of 11, platelets of 341. Chemistries reveals a BUN of 28, creatinine of 0.8. Urinalysis is noted and urine for Legionella antigen is negative. HIV is negative and hepatitis profile is negative. Microbiology reveals the urine cultures are negative, blood cultures are negative. Mycobacterium cultures are no acid-fast seen and review of orders reveals the patient to be on ceftriaxone, azithromycin and Dr. Amaya's note is reviewed and Dr. Jacob's note is reviewed. ASSESSMENT AND PLAN: A 57-year-old male seen earlier today in 275, bed 1 with history of coronary artery disease, cardiomyopathy, myocardial infarction, high cholesterol, congestive heart failure, arthritis, depression, admitted with hemoptysis, tachycardia, right-sided pleuritic chest, sepsis and right-sided community-acquired pneumonia, a man from [place], acid-fast Bacilli smears negative and multiple nodules are seen on CAT scan, which the patient is refusing further workup. Can switch to p.o. Zithromax and we will also check on the final cultures. The patient's procalcitonin is 0.44. The patient's CAT scan of the chest on the 01/15 is noted. Can discontinue the ceftriaxone within the next 24 hours and complete with p.o. Zithromax. Andreas Shields MD
--- NOTE | 2018-01-18 00:28 | PN ---
Copied To: Jignesh Jacob MD Attending MD: Jignesh Jacob MD DATE: 01/17/2018 PULMONARY PROGRESS NOTE REFERRING PHYSICIAN: Dr. Amaya. SUBJECTIVE: He is lying in the bed, head at 45 degrees. Night was unremarkable. Still have some shortness of breath and cough. No nausea, no vomiting, no diarrhea. No leg pain or leg swelling. OBJECTIVE: GENERAL: In no acute distress. VITAL SIGNS: Temperature is 98, heart rate is 93, respiratory rate is 20, blood pressure 102/79, pulse ox 97% on room air. HEENT: Moist mucous membrane. Crowded airway. Mallampati score is IV. NECK: Supple. No JVD. LUNGS: Have fair airflow with rhonchi. HEART: S1 and S2. ABDOMEN: Soft, nontender, no organomegaly. EXTREMITIES: No edema. NEUROLOGIC: Awake, alert, and follows simple command. MEDICATIONS: He is on Coreg 6.25 mg twice a day, Cozaar 25 mg daily, Flomax 0.4 mg daily, Lasix 40 mg daily, Lipitor 20 mg daily, morphine 2 mg IV every 4 hours p.r.n., oxycodone immediate release 5 mg every 6 hours p.r.n., Protonix 40 mg daily, Rocephin 1 g IV daily, Tylenol p.r.n. basis, Xopenex inhaled every 6 hours, Zithromax 500 mg daily. LABORATORY DATA: Shows hemoglobin 11.4, hematocrit 33.9, WBC 10.9, platelet count is 341. INR 1.76. PTT is 30. Sodium 136, potassium 4.2, chloride 98, bicarbonate 23. BUN 28, creatinine 0.8. Glucose is 208. Calcium is 8.9. Total bili 1.7. AST 143, ALT 84, alk phos is 97. Albumin is 3.2. TSH 0.93. He had a TB gold test, which is negative. HIV is nonreactive. Microbiology: Blood culture, negative; urine culture is unremarkable; sputum AFB smear is negative. IMPRESSION AND PLAN: Severe cardiomyopathy with pulmonary hypertension; history of coronary artery disease; pulmonary infiltrate; hilar mediastinal lymphadenopathy; subpleural lung nodule. TB gold test is negative. Still have some cough. Probably have chronic lung disease with pneumonia with severe cardiomyopathy. Continue antibiotics, bronchodilator, diuretics. The patient refused further lung workup, understanding risk. We will recommend followup CT then. Out of bed to chair. Thank you and we will follow with you. Jignesh Jacob MD
[2018-01-18] MEDS: Pantoprazole 40 mg EC Tab PO SCH (06:18)
[2018-01-18] MEDS: oxyCODONE 5 mg Immediate Release Tab PO PRN ×2 (06:18→16:31)
[2018-01-18 07:43] LABS: HEMOGLOBIN 11.1 g/dL (14.0-18.0); MEAN CELL VOLUME 75.4 fl (80.0-105.0); MEAN CORPUSCULAR HEMOGLOBIN 24.6 pg (25.0-35.0); MEAN CORPUSCULAR HGB CONC 32.6 g/dl (31.0-37.0); MEAN PLATELET VOLUME 9.7 fl (7.0-11.0); RBC 4.51 10^6/uL (3.5-6.1); RED CELL DISTRIBUTION WIDTH 19.6 % (11.5-14.5); WHITE BLOOD COUNT 11.5 10^3/ul (4.5-11.0)
[2018-01-18 07:58] LABS: ALBUMIN 3.2 g/dL (3.0-4.8); ALT/SGPT 127 U/L (7-56); AST/SGOT 160 U/L (17-59); BLOOD UREA NITROGEN 29 mg/dL (7-21); CALCIUM 8.5 mg/dL (8.4-10.5); GFR NON-AFRICAN AMERICAN > 60
[2018-01-18] MEDS: Levalbuterol 0.63 MG/3 ML Inhal Soln UD IH SCH ×4 (08:02→20:08)
[2018-01-18] MEDS: guaiFENesin 100 mg/5 ml Syrup UD PO PRN ×3 (12:42→21:09)
[2018-01-18] MEDS: Benzocaine/Menthol (Cepacol) Lozenge MT PRN (12:42)
--- NOTE | 2018-01-18 13:48 | PN ---
Copied To: Torsten Barron MD Attending MD: Torsten Barron MD DATE: 01/18/2018 SUBJECTIVE: The patient is experiencing shortness of breath and hemoptysis. He still refuses either a bronchoscopy or CT and needle-guided biopsy. PHYSICAL EXAMINATION: VITAL SIGNS: Blood pressure 107/74, heart rate 92, temperature 98.5, respirations 20. HEENT: Normocephalic. CHEST: Diffuse bilateral rhonchi. HEART: S1 and S2, regular. EXTREMITIES: No edema. LABORATORY DATA: Hemoglobin and hematocrit 11.1 and 34, white count 11.5, platelet count 323,000. Today's SMA-7: Sodium 133, potassium 4, chloride 95, CO2 of 25, glucose 187, BUN 29, creatinine 0.7. ASSESSMENT: 1. Cardiomyopathy. 2. Hemoptysis, rule out pulmonary tuberculosis. 3. Rule out lung malignancy. RECOMMENDATIONS: Continue Coreg 6.25 mg once a day, Cozaar 25 mg once a day, Lasix 40 mg intravenously once a day, morphine sulfate 2 mg intravenously every 6 hours, Zithromax 500 mg orally daily. We will discuss with Dr. Amaya possibility of initiating anti-TB medicine in view of the patient's refusal to have any diagnostic modality to investigate his underlying hemoptysis. Torsten Barron MD
--- NOTE | 2018-01-18 14:05 | PN ---
Copied To: Andreas Shields MD Attending MD: Andreas Shields MD DATE: 01/18/2018 SUBJECTIVE: The patient is in bed, in no acute distress. PHYSICAL EXAMINATION: VITAL SIGNS: On exam, temperature is 98, blood pressure is 140/60, respiratory rate of 18, heart rate of 92. HEENT: Examination of HEENT is unremarkable. NECK: Supple. LUNGS: Have decreased breath sounds. HEART: Normal S1, S2. ABDOMEN: Soft, nontender. LABORATORY DATA: Laboratory examination reveals a white count 11,500. Chemistries reveals a BUN of 29, creatinine of 0.7. AST and ALT are noted. Urinalysis is reviewed. Serology is negative. QuantiFERON negative. Legionella negative. HIV negative. Hepatitis profile. Microbiology reveals a negative AFB, negative urine cultures, negative blood cultures. ASSESSMENT AND PLAN: A 57-year-old male, seen earlier today in 275, bed 1 with history of coronary artery disease, cardiomyopathy, myocardial infarction, high cholesterol, congestive heart failure, arthritis, depression, admitted with hemoptysis, tachycardia, right-sided pleuritic chest pain, sepsis with a right-sided community-acquired pneumonia. Must rule out underlying malignancy. The patient is originally from [place]. His acid-fast has been negative. His QuantiFERON is negative. He has never had any fevers. It speaks more towards malignancy. We will discontinue the isolation, discontinue ceftriaxone and complete a short course of p.o. azithromycin and complete the workup of the tissue diagnosis. Case discussed with Dr. Amaya and Dr. Jacob. Andreas Shields MD
--- NOTE | 2018-01-18 19:23 | CP.PCM.PN ---
Subjective - Date & Time of Evaluation Date of Evaluation: 01/18/18 Time of Evaluation: 10:45 - Subjective Subjective: Tarun Dey DO PGY-1, Hvac Installer Medicine Progress Note for Dr. Amaya Pt seen and examined at bedside. States he still feels like he "has a cold", reports hemoptysis but less amt since admission. No acute events reported overnight. Denies shortness of breath, resting comfortably at bedside. Objective - Vital Signs/Intake and Output Vital Signs (last 24 hours): Temp Pulse Resp BP Pulse Ox 97.3 F L 46 L 19 112/75 100 01/18/18 11:56 01/18/18 11:56 01/18/18 11:56 01/18/18 17:47 01/18/18 06:00 - Medications Medications: Current Medications Acetaminophen (Tylenol 325mg Tab) 650 mg PO Q6 PRN PRN Reason: Pain, moderate (4-7) Last Admin: 01/14/18 23:34 Dose: 650 mg Atorvastatin Calcium (Lipitor) 20 mg PO DIN [facility] Last Admin: 01/16/18 17:57 Dose: 20 mg Azithromycin (Zithromax) 500 mg PO DAILY [facility] PRN Reason: Protocol Stop: 01/23/18 10:01 Last Admin: 01/18/18 09:39 Dose: 500 mg Benzocaine/Menthol (Cepacol Sore Throat) 1 jose MT Q2H PRN PRN Reason: Sore Throat Last Admin: 01/18/18 12:42 Dose: 1 jose Carvedilol (Coreg) 6.25 mg PO BID [facility] Last Admin: 01/18/18 17:47 Dose: 6.25 mg Furosemide (Lasix) 40 mg IVP DAILY [facility] Last Admin: 01/18/18 09:38 Dose: 40 mg Guaifenesin (Robitussin) 100 mg PO Q4H PRN PRN Reason: Cough Last Admin: 01/18/18 16:31 Dose: 100 mg Levalbuterol HCl (Xopenex) 0.63 mg IH [id number] PRN PRN Reason: Shortness of Breath Last Admin: 01/16/18 17:27 Dose: 0.63 mg Levalbuterol HCl (Xopenex) 0.63 mg IH TIDRESP [facility] Last Admin: 01/18/18 13:35 Dose: Not Given Losartan Potassium (Cozaar) 25 mg PO DAILY [facility] Last Admin: 01/18/18 09:38 Dose: 25 mg Morphine Sulfate (Morphine) 2 mg IVP Q6H PRN PRN Reason: Pain, severe (8-10) Last Admin: 01/17/18 00:22 Dose: 2 mg Oxycodone HCl (Oxycodone Immediate Release Tab) 5 mg PO Q6H PRN PRN Reason: Pain, moderate (4-7) Last Admin: 01/18/18 16:31 Dose: 5 mg Pantoprazole Sodium (Protonix Ec Tab) 40 mg PO 0600 [facility] Last Admin: 01/18/18 06:18 Dose: 40 mg Tamsulosin HCl (Flomax) 0.4 mg PO DAILY [facility] Last Admin: 01/18/18 09:39 Dose: 0.4 mg - Labs Labs: 01/18/18 07:30 01/18/18 07:30 PT 20.5 SECONDS (9.4-12.5) H 01/17/18 06:30 INR 1.76 01/17/18 06:30 APTT 29.7 Seconds (25.1-36.5) 01/17/18 06:30 - Constitutional Appears: Non-toxic, No Acute Distress - Head Exam Head Exam: NORMAL INSPECTION - Eye Exam Eye Exam: EOMI, Normal appearance, PERRL - ENT Exam ENT Exam: Mucous Membranes Moist, Normal Oropharynx - Respiratory Exam Respiratory Exam: NORMAL BREATHING PATTERN Additional comments: Decreased breath sounds b/l - Cardiovascular Exam Cardiovascular Exam: REGULAR RHYTHM, +S1, +S2 - GI/Abdominal Exam GI & Abdominal Exam: Soft, Normal Bowel Sounds. absent: Tenderness - Extremities Exam Extremities Exam: Full ROM, Normal Capillary Refill, Normal Inspection - Neurological Exam Neurological Exam: Alert, Awake, CN II-XII Intact, Oriented x3 - Skin Skin Exam: Dry, Intact, Normal Color, Warm Assessment and Plan - Assessment and Plan (Free Text) Assessment: 57 y/o male with PMH of HTN, CHF, CAD with [place] (s/p 2 stents in 2012), gout, HLD presents to ED c/o progressive shortness of breath for the past 3 days. CXR: showed right lower air space, atelectasis vs pneumonia, moderate right pleural effusion. moderate cardiomegaly. Plan: Pneumonia C/w Azithromax Day 3 Rocephin d/c'd as per ID Xopenx TID and q6 prn ID consulted, recs appreciated Pulmonary Nodules Patient keeps refusing biopsy studies Pulmonology following Back Pain Switched to flexeril, pt c/o pain not improving w/ opioid tx R/O Tuberculosis Patient has night sweats, weight loss, fatigue, hemoptysis, from endemic country of TB AFB samples - First sample preliminary stain negative, second obtained; patient refusing third Sputum cultures neg Quantiferon negative ID Following Isolation d/c'd HFrEF exacerbation Continue Carvedilol 6.25mg Continue Losartan 25mg daily Lasix 40mg IVP daily Daily weight Strict I/O daily Fluid restriction Cardiology following H/O CAD Hold coumadin Lipitor 20 QD Anemia H/H: trended down, but stable, no signs of overt bleeding Monitor closely HLD Continue Lipitor H/O BPH Continue home med Flomax 0.4 mg PPX Protonix/SCD Pt seen, examined with, and plan discussed with Dr. Amaya, attending. Tarun Dey DO PGY-1, Hvac Installer Pager #[phone]
--- NOTE | 2018-01-19 00:11 | PN ---
Copied To: Jignesh Jacob MD Attending MD: Jignesh Jacob MD DATE: 01/18/2018 PULMONARY PROGRESS NOTE REFERRING PHYSICIAN: Dr. Amaya SUBJECTIVE: He is lying in the bed at 45 degrees. Night was unremarkable. Feels better. Decreased cough and shortness breath. No nausea, no vomiting and no diarrhea. No leg pain or leg swelling. OBJECTIVE: GENERAL: In no acute distress. VITAL SIGNS: Temperature is 98, heart rate 92, respiratory rate is 18, blood pressure 112/75, pulse ox 100% on nasal cannula. HEENT: Moist mucous membranes. Crowded airway. NECK: Supple. No JVD. LUNGS: Have a fair airflow with few rhonchi. HEART: S1 and S2. ABDOMEN: Soft, nontender. No organomegaly. EXTREMITIES: No edema. NEUROLOGIC: Awake and alert, follows simple command. MEDICATIONS: He is on Cepacol lozenges every 2 hours p.r.n., Coreg 6.25 mg twice a day, Cozaar 25 mg daily, Flomax 0.4 mg daily, Lasix 40 mg daily, Lipitor 20 mg daily, morphine 2 mg every 6 hours p.r.n., oxycodone immediate release 5 mg every 6 hours p.r.n., Protonix 40 mg daily, Robitussin 100 mg every 4 hours, Tylenol p.r.n., Xopenex inhaled every 6 hours p.r.n., Zithromax 500 mg daily. LABORATORY DATA: Shows hemoglobin 11.1, hematocrit 34, WBC 11.5, platelet count is 323. Sodium 133, potassium 4, chloride 95, bicarbonate 25, BUN 29, creatinine 0.7, glucose 187, calcium is 8.5, AST 160, ALT 127, alk phos is 110. Albumin is 3.2. Microbiology; blood culture and urine culture have been negative. IMPRESSION AND PLAN: Severe cardiomyopathy with pulmonary hypertension, coronary artery disease, has a pulmonary infiltrate, hilar and mediastinal adenopathy, subpleural lung nodules. Tuberculosis Gold test is negative. Tuberculosis isolation is discontinued today. Case discussed with nursing staff. Pulmonary point view, doing well. Out of bed to chair, physical therapy, diuretics, afterload partition notcher, fall precaution. The patient refused any pulmonary workup including biopsy, understanding risk of cancer. The patient is at pulmonary of point stable. Thank you and we will follow with you. Jignesh Jacob MD [facility] # [id number]
[2018-01-19] MEDS: guaiFENesin 100 mg/5 ml Syrup UD PO PRN ×2 (03:21→15:12)
[2018-01-19] MEDS: Pantoprazole 40 mg EC Tab PO SCH (05:05)
[2018-01-19] MEDS: Benzocaine/Menthol (Cepacol) Lozenge MT PRN (05:21)
[2018-01-19 05:38] VITALS: TEMP 98.3
[2018-01-19] MEDS: Levalbuterol 0.63 MG/3 ML Inhal Soln UD IH SCH ×2 (08:29→14:40)
[2018-01-19 08:55] LABS: BASO # 0.02 K/mm3 (0.0-2.0); BASO % 0.2 % (0.0-3.0); EOS % 0.1 % (1.5-5.0); GRAN # 9.63 (1.4-6.5); GRAN % 79.7 % (50.0-68.0); HEMOGLOBIN 10.6 g/dL (14.0-18.0); LYMPH % 8.4 % (22.0-35.0); MEAN CORPUSCULAR HGB CONC 31.6 g/dl (31.0-37.0); MEAN PLATELET VOLUME 9.8 fl (7.0-11.0); MONO # 1.4 (0.1-0.6); MONO % 11.6 % (1.0-6.0); RBC 4.41 10^6/uL (3.5-6.1); RED CELL DISTRIBUTION WIDTH 19.8 % (11.5-14.5); WHITE BLOOD COUNT 12.1 10^3/ul (4.5-11.0)
[2018-01-19 09:26] LABS: ALBUMIN 3.5 g/dL (3.0-4.8); ALT/SGPT 114 U/L (7-56); AST/SGOT 117 U/L (17-59); BLOOD UREA NITROGEN 26 mg/dL (7-21); CALCIUM 8.6 mg/dL (8.4-10.5); GFR NON-AFRICAN AMERICAN > 60
[2018-01-19 12:21] VITALS: RESP 19
--- NOTE | 2018-01-19 13:53 | RAD ---
Date of service: 01/19/2018 HISTORY: SOB COMPARISON: No prior. FINDINGS: LUNGS: There is an infiltrate in the right lower lobe showing improvement from previous study PLEURA: No significant pleural effusion identified, no pneumothorax apparent. CARDIOVASCULAR: Moderate cardiomegaly OSSEOUS STRUCTURES: No significant abnormalities. VISUALIZED UPPER ABDOMEN: Normal. OTHER FINDINGS: None. IMPRESSION: There is an infiltrate in the right lower lobe showing improvement from previous study
--- NOTE | 2018-01-19 15:27 | PN ---
Copied To: Jignesh Jacob MD Attending MD: Jignesh Jacob MD DATE: 01/19/2018 PULMONARY PROGRESS NOTE REFERRING PHYSICIAN: Dr. Amaya. SUBJECTIVE: He is lying in the bed, head at 45 degrees. Short of breath with minimal exertion, still have cough. No nausea. No vomiting. No diarrhea. No leg pain or leg swelling. OBJECTIVE: GENERAL: In no acute distress. VITAL SIGNS: Temperature is 98, heart rate 67, respiratory rate is 20, blood pressure 108/81, pulse ox 98% on nasal cannula. HEENT: Moist mucous membrane. Crowded airway. NECK: Supple. No JVD. LUNGS: Have a few scattered rhonchi. HEART: S1 and S2. ABDOMEN: Soft, nontender. No organomegaly. EXTREMITIES: No edema. NEUROLOGICAL: Awake and alert. Follows simple command. MEDICATIONS: He is on Cepacol lozenges every 2 hours p.r.n., Coreg 6.25 mg twice a day, Cozaar 25 mg daily, Flomax 0.4 mg daily, Lasix 40 mg daily, Lipitor 20 mg daily, morphine 2 mg every 6 hours p.r.n., Protonix 40 mg daily, Robitussin 100 mg every 4 hours, Tylenol p.r.n., Xopenex inhaled every 6 hours p.r.n., Zithromax 500 mg daily. LABORATORY DATA: Shows hemoglobin 10.6, hematocrit 33.5, WBC 12, platelet is 381. Sodium 132, potassium 4, chloride 94, bicarbonate 28, BUN 26, creatinine 0.8, glucose 149, calcium 8.6, total bili 2.1, AST 117, ALT 114, alkaline phosphatase is 129. Albumin is 3.5. Chest x-ray done today shows there is an infiltrate in the right lower lobe showing improvement from previous studies. IMPRESSION AND PLAN: Severe cardiomyopathy with pulmonary hypertension, coronary artery disease, pulmonary infiltrate, hilar and mediastinal adenopathy, subpleural lung nodule. Pulmonary point of view, doing okay. Continue cough suppressor, bronchodilator, antibiotics, diuretics, afterload plant production manager, beta-alycia. The patient refused pulmonary workup including biopsy, understanding risk of cancer. Out of bed to chair, physical therapy. Thank you and we will follow with you. Jignesh Jacob MD [facility] # [id number]
[2018-01-19 16:37] VITALS: O2SAT 97
--- NOTE | 2018-01-19 17:14 | PN ---
Copied To: Torsten Barron MD Attending MD: Torsten Barron MD DATE: 01/19/2018 SUBJECTIVE: The patient is still experiencing hemoptysis and shortness of breath. He refuses either bronchoscopy or CT-guided needle biopsy and the patient did have a short run of a nonsustained ventricular tachycardia yesterday. PHYSICAL EXAMINATION: VITAL SIGNS: Blood pressure 117/71, heart rate 90, temperature 98.3, and respirations 18. HEENT: . CHEST: Diffuse bilateral rhonchi. HEART: S1 and S2, regular. EXTREMITIES: No edema. LABORATORY DATA: Hemoglobin and hematocrit 10.6 and 33.5, white count 12.5, and platelet count 81,000. SMA-7: Sodium 132, potassium 4, chloride 94, CO2 of 28. Glucose 149. BUN 26, creatinine 0.8. Today's total bilirubin 2.1, AST and ALT are 117 and 114 respectively, alkaline phosphatase is 129. Yesterday's magnesium level was within normal limit at 1.8. Blood cultures are negative after 4 days. Preliminary sputum for AFB stain. No acid-fast bacilli in two samples. ASSESSMENT: 1. Cardiomyopathy. 2. Nonsustained ventricular tachycardia. 3. Persistent hemoptysis. 4. Rule out underlying tuberculosis. 5. Anemia. RECOMMENDATIONS: Continue Coreg 6.25 mg twice a day, Cozaar 25 mg once a day, Lasix 40 mg intravenously twice a day, hold Lipitor and Tylenol for now, continue Zithromax 500 mg once a day. Obtain a portable chest x-ray. Torsten Barron MD
--- NOTE | 2018-01-19 17:32 | CP.PCM.DIS ---
Provider - Provider Date of Admission: 01/14/18 17:24 Attending physician: Car Amaya MD Consults: JAMIL - Dr. Cornelius Bowman - Dr. Jacob Time Spent in preparation of Discharge (in minutes): 45 Hospital Course - Lab Results Lab Results: Micro Results 01/17/18 22:00 Other: Please Indicate Mycobacterial Culture - Preliminary 01/17/18 00:00 Other: Please Indicate Mycobacterial Culture - Preliminary 01/15/18 10:00 Other: Please Indicate Mycobacterial Culture - Preliminary 01/14/18 23:20 Urine,Clean Catch Urine Culture - Final No Growth (<1,000 CFU/ML) Most Recent Lab Values WBC 12.1 10^3/ul (4.5-11.0) H 01/19/18 08:30 RBC 4.41 10^6/uL (3.5-6.1) 01/19/18 08:30 Hgb 10.6 g/dL (14.0-18.0) L 01/19/18 08:30 Hct 33.5 % (42.0-52.0) L 01/19/18 08:30 MCV 76.0 fl (80.0-105.0) L 01/19/18 08:30 MCH 24.0 pg (25.0-35.0) L 01/19/18 08:30 MCHC 31.6 g/dl (31.0-37.0) 01/19/18 08:30 RDW 19.8 % (11.5-14.5) H 01/19/18 08:30 Plt Count 381 10^3/uL (120.0-450.0) 01/19/18 08:30 MPV 9.8 fl (7.0-11.0) 01/19/18 08:30 Gran % 79.7 % (50.0-68.0) H 01/19/18 08:30 Lymph % (Auto) 8.4 % (22.0-35.0) L 01/19/18 08:30 [place] % (Auto) 11.6 % (1.0-6.0) H 01/19/18 08:30 Eos % (Auto) 0.1 % (1.5-5.0) L 01/19/18 08:30 Baso % (Auto) 0.2 % (0.0-3.0) 01/19/18 08:30 Gran # 9.63 (1.4-6.5) H 01/19/18 08:30 Lymph # (Auto) 1.0 (1.2-3.4) L 01/19/18 08:30 [place] # (Auto) 1.4 (0.1-0.6) H 01/19/18 08:30 Eos # (Auto) 0.0 (0.0-0.7) 01/19/18 08:30 Baso # (Auto) 0.02 K/mm3 (0.0-2.0) 01/19/18 08:30 PT 20.5 SECONDS (9.4-12.5) H 01/17/18 06:30 INR 1.76 01/17/18 06:30 APTT 29.7 Seconds (25.1-36.5) 01/17/18 06:30 Sodium 132 mmol/L (132-148) 01/19/18 08:30 Potassium 4.0 mmol/L (3.6-5.0) 01/19/18 08:30 Chloride 94 mmol/L (98-107) L 01/19/18 08:30 Carbon Dioxide 28 mmol/L (21-33) 01/19/18 08:30 Anion Gap 14 (10-20) 01/19/18 08:30 BUN 26 mg/dL (7-21) H 01/19/18 08:30 Creatinine 0.8 mg/dl (0.8-1.5) 01/19/18 08:30 Est GFR ( Amer) > 60 01/19/18 08:30 Est GFR (Non-Af Amer) > 60 01/19/18 08:30 Random Glucose 149 mg/dL (70-110) H 01/19/18 08:30 Hemoglobin A1c 6.9 % (4.2-6.5) H 01/15/18 07:00 Calcium 8.6 mg/dL (8.4-10.5) 01/19/18 08:30 Magnesium 1.8 mg/dL (1.7-2.2) 01/18/18 07:30 Total Bilirubin 2.1 mg/dL (0.2-1.3) H 01/19/18 08:30 AST 117 U/L (17-59) H D 01/19/18 08:30 ALT 114 U/L (7-56) H 01/19/18 08:30 Alkaline Phosphatase 129 U/L (38-126) H 01/19/18 08:30 Lactate Dehydrogenase 594 U/L (333-699) 01/14/18 16:35 Total Creatine Kinase 24 U/L (35-230) L 01/14/18 16:35 Troponin I 0.03 ng/mL 01/15/18 07:50 NT-Pro-B Natriuret Pep 4070 pg/mL (0-450) H 01/14/18 16:35 Total Protein 7.1 g/dL (5.8-8.3) 01/19/18 08:30 Albumin 3.5 g/dL (3.0-4.8) 01/19/18 08:30 Globulin 3.6 gm/dL 01/19/18 08:30 Albumin/Globulin Ratio 1.0 (1.1-1.8) L 01/19/18 08:30 Triglycerides 145 mg/dL (35-160) 01/15/18 07:50 Cholesterol 122 mg/dL (130-200) L 01/15/18 07:50 LDL Cholesterol Direct 61 mg/dL (0-129) 01/15/18 07:50 HDL Cholesterol 15 mg/dL (29-60) L 01/15/18 07:50 Procalcitonin 0.44 NG/ML (0.19-0.49) 01/15/18 01:50 TSH 3rd Generation 0.93 mIU/mL (0.46-4.68) 01/15/18 07:50 Urine Color andrés (YELLOW) 01/14/18 22:00 Urine Appearance Clear (CLEAR) 01/14/18 22:00 Urine pH 6.0 (4.7-8.0) 01/14/18 22:00 Ur Specific [place] 1.020 (1.005-1.035) 01/14/18 22:00 Urine Protein 100 mg/dL (<30 mg/dL) H 01/14/18 22:00 Urine Glucose (UA) Negative mg/dL (NEGATIVE) 01/14/18 22:00 Urine Ketones Trace mg/dL (NEGATIVE) H 01/14/18 22:00 Urine Blood Trace-intact (NEGATIVE) H 01/14/18 22:00 Urine Nitrate Negative (NEGATIVE) 01/14/18 22:00 Urine Bilirubin Small (NEGATIVE) H 01/14/18 22:00 Urine Urobilinogen 4.0 E.U./dL (<1 E.U./dL) H 01/14/18 22:00 Ur Leukocyte Esterase Negative Alexandre/uL (NEGATIVE) 01/14/18 22:00 Urine RBC 5 - 10 /hpf (0-2) 01/14/18 22:00 Urine WBC 5 - 10 /hpf (0-6) 01/14/18 22:00 Ur Epithelial Cells 6 - 8 /hpf (0-5) 01/14/18 22:00 Hepatitis A IgM Ab Negative (NEGATIVE) 01/17/18 07:00 Hep Bs Antigen Negative (NEGATIVE) 01/17/18 07:00 Hep B Core IgM Ab Negative (NEGATIVE) 01/17/18 07:00 Hepatitis C Antibody Negative (NEGATIVE) 01/17/18 07:00 HIV 1&2 Ag/Ab, 4th Gen Nonreactive (Nonreactive) 01/15/18 10:55 Ur L.pneumophila Ag Negative (NEGATIVE) 01/15/18 12:50 TB Test (QFT) Nil 0.04 IU/mL 01/15/18 07:50 TB Test Mitogen - Nil 0.75 IU/mL 01/15/18 07:50 TB Test TB - Nil 0.29 IU/mL 01/15/18 07:50 TB Test (QFT) Negative (Negative) 01/15/18 07:50 - Hospital Course Hospital Course: Tarun Dey DO PGY-1, Blocker Polishing Medicine Discharge Summary 57 y/o male with PMH of HTN, CHF, CAD with [place] (s/p 2 stents in 2012), gout, HLD who presented on 01/14/18 to ED c/o progressive shortness of breath for the past 3 days. Worse on exertion and on laying flat in bed. Exercise tolerance had been decreasing lately to one block. He sleeps on 3 pillows and wakes up gasping for air. He also c/o left chest pain, on the right and posterior aspect of his lower chest wall, prominent during inspiration with no radiation. Patient had similar symptoms in the past related to his CHF and was hospitalized for CHF exacerbation. Patient reported coughing up blood 3 times since this morning which was pinkish in color with no clots. He also admitted to unintentional weight loss, fatigue and night sweats lately but denied fever. Patient had no prior history of TB, no TB contacts, no recent travel. He is from [place] and [place] in [place]. Patient denied palpitation, dizziness, headache, leg swelling, urinary symptoms, N/V/D, abdominal pain, muscle pain or weakness. Nuclear stress test (2017) was equivocal. Echo (2017) showed EF 25-30%, LVH, PHTN, severly impaired LV function. CXR demonstrated RLL airspace disease, compressive atelectasis vs. PNA and moderate R pleural effusion. EKG showed sinus tachycardia with PVCs, possible L atrial enlargement , L axis deviation, abnormal QRS-T angle, consider primary T-wave abnormality. Repeat echo showed L ventricular dilation, systolic dysfunction, regional wall motion abnormalities, moderate mitral regurgitation, moderate tricuspid regurgitation, and moderate pulmonary HTN. CT chest/abd showed 2.7 X 1.7 cm subpleural nodule in posterior L lung base. Patchy and ground-glass airspace disease in R lower lobe most compatible with pneumonia. Aspiration PNA a consideration, mediastinal and hilar lymphadenopathy, nonspecific and may be reactive, inflammatory or metastatic. Infrarenal aortic aneurysm, otherwise no acute findings. Pt was placed on rocephin and azithromycin for PNA tx, and was placed on TB precautions until sputum cultures were negative. Pt refused repeat sputum cultures, and refused further workup for lung findings on CT, including lung biopsy. ID was consulted (Dr. Shields), who deescalated pt to PO azithromycin and stated pt did not need TB precautions after cultures were negative. Pt's hemoptysis improved during admission and was non-existent on day of discharge. Pulm was consulted (Dr. Jacob), who was aware of pt refusal for further work-up of lung findings and recommended follow-up CT chest in 6-12 mos and outpatient follow-up, and to start patient on HFA inhaler on discharge. Pt was unable to clearly articulate medication list he was currently on or pharmacy where he obtains medications from. Reached out to pharmacy he stated he obtained medications from, who stated that pt has not obtained medications at this location since 2017. Because pt was unable to clearly articulate medication regimen, we have provided prescriptions for pt for supply of 30 days. Explained to pt need for medications until pt can see PCP (Dr. Rosales) and clarify med regimen. Pt expressed displeasure with this, stated that he had medications at home, continues to be unable to articulate meds actually on outpatient. Pt informed that he has the right to refuse these medications, but that they would be against medical advice. Pt was discharged to home in stable condition on 01/19/2018. Discharge Exam - Head Exam Head Exam: NORMAL INSPECTION - Eye Exam Eye Exam: EOMI, Normal appearance, PERRL - ENT Exam ENT Exam: Mucous Membranes Moist, Normal Oropharynx - Respiratory Exam Respiratory Exam: Clear to PA & Lateral, NORMAL BREATHING PATTERN, UNREMARKABLE Additional comments: Trace coarse breath sounds in bases auscultated b/l - Cardiovascular Exam Cardiovascular Exam: REGULAR RHYTHM, +S1, +S2 - GI/Abdominal Exam GI & Abdominal Exam: Normal Bowel Sounds, Soft, Unremarkable - Extremities Exam Extremities exam: full ROM, normal capillary refill, normal inspection, pedal pulses present - Neurological Exam Neurological exam: Alert, CN II-XII Intact, Oriented x3 - Skin Skin Exam: Dry, Intact, Normal Color, Warm Discharge Plan - Discharge Medications Prescriptions: Albuterol Sulfate [Ventolin Hfa] 1 puff IH Q6 PRN #1 inhaler PRN Reason: Shortness Of Breath Aspirin [Aspirin Chewable] 81 mg PO DAILY #30 ctb Azithromycin 500 mg PO DAILY #3 tablet Carvedilol [Coreg] 6.25 mg PO BID #60 tab Clopidogrel [Plavix] 75 mg PO DAILY #30 tab Furosemide [Lasix] 40 tab PO DAILY #30 tab Losartan [Cozaar] 25 mg PO DAILY #30 tab Pravastatin Sodium 80 mg PO DAILY #30 tablet - Follow Up Plan Condition: FAIR Disposition: HOME/ ROUTINE Instructions: Pneumonia, Adult (DC), Coughing up Blood Additional Instructions: Please follow-up with your primary care physician (Dr. Rosales) within 1 week of discharge. Recommend repeat CT scan of chest in next 6-12 mos. Please follow-up with pulmonology (Dr. Jacob) within 1 week of discharge. Please resume home medications as prescribed. Please take azithromycin (antibiotic) as prescribed for 3 days. Should sympoms recur or worsen, go to your primary care physician's office or go to your nearest emergency department. NOTE: Do not take warfarin until otherwise instructed by your primary care physician! Referrals: Elan Rosales MD [Family Provider] - Jignesh Jacob MD [Staff Provider] -
[2018-01-19 17:47] VITALS: BP 100/68; PULSE 91
--- NOTE | 2018-01-20 01:46 | PN ---
Copied To: Andreas Shields MD Attending MD: Andreas Shields MD DATE: 01/19/2018 SUBJECTIVE: Patient is in room 275, was seen earlier this morning. No fevers. No chills. No nausea. No vomiting. PHYSICAL EXAMINATION: VITAL SIGNS: Temperature is 98, blood pressure is 120/70, respiratory rate 16. HEENT: Unremarkable. NECK: Supple. LUNGS: Have decreased breath sounds. HEART: Normal S1 and S2. ABDOMEN: Soft. LABORATORY EXAMINATION: Noted. Patient's chest x-ray is reviewed. Dr. Jacob's progress note is reviewed. ASSESSMENT AND PLAN: This is 57 years old with coronary artery disease, cardiomyopathy, myocardial infarction, high cholesterol, congestive heart failure, arthritis, depression, admitted with hemoptysis, tachycardia, right-sided pleuritic chest pain, sepsis with a right-sided community acquired pneumonia. The patient is originally from [place]. The QuantiFERON is negative. Mycobacterium, acid-fast smears are negative and procalcitonin is negative. The patient needs a tissue diagnosis. Completed p.o. Zithromax at this time. Follow up as outpatient. Andreas Shields MD
== END 2018-01-19 19:00 | disposition home or self-care (01) | DRG 541 ==
LOC: ED 15:53 → ERH 17:24 → 2RSO 22:37
PROVIDERS: ADMIT Internal Medicine; ATTEND Internal Medicine
DX: J18.9 Pneumonia, unspecified organism (principal); I50.23 Acute on chronic systolic (congestive) heart failure; I11.0 Hypertensive heart disease with heart failure; I42.9 Cardiomyopathy, unspecified; I08.1 Rheumatic disorders of both mitral and tricuspid valves; J98.11 Atelectasis; I47.2 Ventricular tachycardia; I71.9 Aortic aneurysm of unspecified site, without rupture; R04.2 Hemoptysis; D64.9 Anemia, unspecified; E78.5 Hyperlipidemia, unspecified; I25.10 Atherosclerotic heart disease of native coronary artery without angina pectoris; I27.20 Pulmonary hypertension, unspecified; K21.9 Gastro-esophageal reflux disease without esophagitis; N40.0 Benign prostatic hyperplasia without lower urinary tract symptoms; F17.200 Nicotine dependence, unspecified, uncomplicated; F32.9 Major depressive disorder, single episode, unspecified; M10.9 Gout, unspecified; E78.00 Pure hypercholesterolemia, unspecified; M19.90 Unspecified osteoarthritis, unspecified site; R59.0 Localized enlarged lymph nodes; M54.5 Low back pain; I25.2 Old myocardial infarction; Z79.01 Long term (current) use of anticoagulants; Z95.5 Presence of coronary angioplasty implant and graft